=== PATIENT | female | born 1995 | race Caucasian/White ===

== ENCOUNTER 2017-10-21 20:36 | Emergency (ER) | payer MEDICAID, SELFPAY ==
[2017-10-21 20:42] VITALS: BP 109/47; PULSE 74; RESP 16; TEMP 37.1; O2SAT 99
--- NOTE | 2017-10-21 21:10 | ED.GENADUL_ITS ---
Discharge Plan Disposition Patient Disposition: HOME Condition: Improving Discharge Details Chief Complaint: RashLesion Clinical Impression: Abscess and cellulitis of gluteal region Primary Care Provider: Domingo Darby ED Provider: Sun Sanz Home Meds and New Rx's Prescriptions: New sulfamethoxazole-trimethoprim [Bactrim DS] 800-160 mg tablet 1 tab PO Q12H Qty: 14 RF: 0 Continue norgestimate-ethinyl estradiol [Sprintec (28)] 1 EACH tablet 1 tab-cap PO DAILY Qty: 3 RF: 3 ranitidine HCl 150 MG capsule 150 mg PO BID Qty: 60 RF: 1 fluoxetine 20 MG capsule 20 mg PO DAILY Qty: 30 RF: 2 aripiprazole [Abilify] 2 MG tablet 2 mg PO DAILY Qty: 15 RF: 1 Discharge Instructions Instructions: Cellulitis (ED), Abscess Incision and Drainage (GEN) Additional Instructions: Keep wound clean, dry, covered. Please leave dressing in place for the next 48 hours. Take antibiotics as prescribed. Even if symptoms improve please take the entire course. Encourage hydration. Tylenol and/or Motrin as needed for discomfort. Packing is to be removed in 48 hours, try to see primary care in that time line for reevaluation of wound. If you develop fevers/chills, increased pain, spreading of the redness or other new/worsening symptoms please seek care urgently once again. Referrals: Domingo Darby MD [Primary Care Provider] - Discharge Data Discharge Date/Time-TO BE ENTERED AT DEPARTURE: 10/21/17 22:23 Medical Decision Making MDM Narrative Medical decision making narrative: Vira presents today with chief complaint of pain, erythema and drainage to left buttock. She had a wound similar on the right which has since healed well. The area on the left appear to have surrounding cellulitis with erythema, warmth and pain. The central portion is fluctuant with 2 areas that appear to have been draining. No drainage can be expressed at this time. The larger of the openings is 4mm in diameter, the smaller 2mm. This area is very tender for the patient. She appears nontoxic, is afebrile. Reports no fevers at home. States she otherwise feels well. Discussed need to drain the abscess. Discussed risks/benefits as well as expected procedural steps. She needed much reassurance as she is very anxious but is in agreement with this plan. With the surrounding cellulitis, patient will also be placed on antibiotics. UPT negative. Procedure Note: Prior to beginning any procedure, LET was applied over the abscess. Using standard sterile technique, skin was first prepped with chlorhexidine. The area was then anesthetized with 1% lidocaine with epinephrine. 10 cc was used. Patient did express discomfort with injection. Once the area was sufficiently anesthetized, a 11 blade was used to incise the area. Incision connected the 2 open areas. A 1.5 cm opening was made. A large plug was then able to be pulled from the center of the abscess. This appears to be where it had actively been draining from historically. The plug was approximately 2 cm in length by 1 cm in width. This made a large cavity that was able to be visualized in depth. The wound opening and total is approximately 1.5 cm x 5 mm in opening. Irrigated the area, loculations were broken up. Again, I was able to visualize the entirety of the cavity and all of the debris was able to be extracted with gauze, forceps and digital probing. The area was then packed and sterile dressing applied. Patient feels much improved at this time. Patient with placed on Bactrim. There is surrounding erythema. I am concerned that she may have a MRSA infection given her other recent abscess. She was given strict return precautions. Advised follow-up with primary care in 48 hours. Advised at that time the packing may be removed and the wound be reevaluated. She is given strict return precautions. All the questions and concerns were addressed and agree with this plan. I did give the patient and family coupons for the Bactrim. They will call Dr. Darby office tomorrow to schedule appointment [facility] - General Adult General Mode of arrival: ambulatory . Date/Time Provider Initiated Documentation: 10/21/17 20:55 . Limitations to Documentation: no limitations . Information obtained by: patient and family . HPI Narrative: Patient is a 22-year-old female presenting today with chief complaint of area of swelling, redness and pain to the left buttock. She reports she was seen by her primary care 2 weeks ago for similar lesion on the right. At that point, they did not advise any antibiotics. This has subsequently healed quite well. However, she recently developed a new one on the left buttock which has increasing pain, size and erythema. She has noted some purulent discharge from the area. Denies any fevers or chills. Reports she is otherwise feeling well. Is having exquisite discomfort particularly when driving and needing to stay seated on the area for extended periods of time. Related Data Previous Rx's Medication Instructions Recorded sulfamethoxazole-trimethoprim 1 tab PO Q12H #14 tab 10/21/17 [Bactrim DS] Allergies Allergy/AdvReac Type Severity Reaction Status Date / Time No Known Allergies Allergy Unverified 10/23/17 14:05 General Stated Complaint: RashLesion DOMINIK: 3 Review of Systems Constitutional Reports as per HPI, Denies chills, Denies fatigue, Denies fever(s) and Denies headache(s) ENT Denies headache(s) Respiratory Reports system reviewed and no additional complaints, except as docu Gastrointestinal Denies abdominal pain, Denies change in bowel habits, Denies diarrhea and Denies vomiting Genitourinary Denies dysuria, Denies pelvic pain and Denies urinary incontinence Musculoskeletal Reports as per HPI, Reports abnormal gait, Denies numbness and Denies tingling Integumentary/Breasts Reports as per HPI Neurologic Reports abnormal gait, Denies headache(s), Denies numbness, Denies sensory deficit, Denies tingling and Denies paresthesias Endocrine Denies fatigue PFSH Family History Mother Mental disorder Father Difficulty controlling anger Brother Substance abuse Other Mental disorder Asthma Medical History 504 PLAN/IEP Acne Asthma Depression Social History Smoking/Tobacco Use Status: Never Surgical History Tooth extraction Exam Const General: cooperative, healthy appearing, comfortable, no acute distress and well developed Nutritional Appearance: average body habitus and well nourished Orientation: alert Eyes General: appearance normal, both eyes and all related structures Resp Effort & Inspection: normal respiratory effort, able to speak in complete sentences and no respiratory distress Auscultation: clear to auscultation bilaterally Cardio Rate: regular rate Rhythm: regular rhythm Heart Sounds: S1 normal and S2 normal GI Palpation: soft, no guarding, not rigid and nontender Back/Spine/Pelvis Back: no CVA tenderness and back tenderness (Patient has a ) Back/spine/pelvis image: 2 1. area of erythema, centrally there is an area of fluctuance with 2 small openings not currently draining. Skin General skin exam: no ecchymosis, erythema (Wound on the right buttock appears to be healing well. Please see above for left. ), fluctuance (left buttock as above. ) and induration (surroundig tissue is indurated) Neuro General: alert and awake Cognition: normal cognition Speech: speech normal Gait: normal gait Psych Appearance: grossly normal Mental Status: mental status grossly normal Speech and Movement: speech and movement normal Mood: congruent mood Course Vital Signs Temperature 37.1 C 10/21/17 20:42 Pulse 74 10/21/17 20:42 Respiratory Rate 16 10/21/17 20:42 Blood Pressure 109/47 L 10/21/17 20:42 Pulse Oximetry 99 10/21/17 20:42 Temperature 37.1 C 10/21/17 20:42 Pulse 74 10/21/17 20:42 Respiratory Rate 16 10/21/17 20:42 Blood Pressure 109/47 L 10/21/17 20:42 Pulse Oximetry 99 10/21/17 20:42 Procedures Abscess I/D Site: Back (buttock) Side (if applicable): Left Local Anesthetic: Lidocaine 1% and With Epi Amount of anesthesia used (mL): 10 Technique: Incised with #11 Blade Amount of fluid expressed (mL): 8 Irrigation: Yes Packing used?: Plain Complications: Pain (pain with injection of local anesthetic)
[2017-10-21] MEDS: Sulfameth/Trimeth DS TAB 1 TAB PO ×2 (22:18→22:19)
== END 2017-10-21 22:23 | disposition home or self-care (01) ==
LOC: ER 22:34
PROVIDERS: Emergency Provider Physician Assistant; PCP Pediatrics
DX: L03.317 Cellulitis of buttock (principal); L02.31 Cutaneous abscess of buttock
CPT/HCPCS: 10060; 81025; 99283

== ENCOUNTER 2017-12-23 23:59 | Emergency (ER) | payer MEDICAID, SELFPAY ==
[2017-12-24 00:01] VITALS: PULSE 112; RESP 20; TEMP 36.6; O2SAT 100
--- NOTE | 2017-12-24 00:43 | ED.GENADUL_ITS ---
Discharge Plan Disposition Patient Disposition: HOME Condition: Good Discharge Details Chief Complaint: Laceration Clinical Impression: Deliberate self-cutting, Forearm laceration Primary Care Provider: Domingo Darby ED Provider: Jesús Baker [place] Meds and New Rx's Prescriptions: Continue norgestimate-ethinyl estradiol [Sprintec (28)] 1 EACH tablet 1 tab-cap PO DAILY Qty: 3 RF: 3 ranitidine HCl 150 MG capsule 150 mg PO BID Qty: 60 RF: 1 fluoxetine 20 MG capsule 20 mg PO DAILY Qty: 30 RF: 2 aripiprazole [Abilify] 2 MG tablet 2 mg PO DAILY Qty: 15 RF: 1 Discharge Instructions Instructions: Laceration (ED) Additional Instructions: Watch for signs of infection which include increased redness, pain, swelling. Sutures should come out in 10-14 days and you should return here. In the future when you are feeling upset/anxious please call and talk to somebody rather than cutting yourself. You may always return here if you feel unsafe or upset and need help. Referrals: Domingo Darby MD [Primary Care Provider] - Medical Decision Making Patient's wound did need suturing. It was down to subcu but not through subcu. She is neurovascularly intact distally. Please see procedure note. Patient did cut herself but not because of self-harm, more as a release. She has history of same. She is on medications. Not always taking the medications per the boyfriend. Not always making good choices either. However, she is not suicidal or homicidal. She is not depressed. I did offer mental health evaluation tonight and she declined. I asked her what she would do in the future when she gets upset and feels bad and she states would call for help. I have no indication to hold her for mental health. Mother is comfortable with her going. Patient to return here in 10-14 days for suture removal. Watch for signs of infection. Call for help or return here if she has any unsafe feelings or becomes upset and wants to cut in the future. Follow-up with primary care since she does not have mental health counselors. HPI General Mode of arrival: ambulatory . Date/Time Provider Initiated Documentation: 12/24/17 00:03 . Limitations to Documentation: no limitations . Information obtained by: patient and family . HPI Narrative: Patient presents to ED with laceration to left forearm. This was self-inflicted and resulted from her cutting with a kitchen knife. She has a history of cutting as a release mechanism. She denies being suicidal or homicidal. She was upset and felt bad. She has not cut in a long time but tonight was very stressful. She denies any other injury. She has been in counseling previously but does not really have a counselor that she likes does not typically go. She is on medications. She is here with her boyfriend and her mother has arrived as well. Boyfriend in private reports to me that he is worried not because she is suicidal or depressed but because she has been making bad choices and won't go to counseling. Related Data Home Medications Medication Instructions Recorded Confirmed norgestimate-ethinyl estradiol 1 tab-cap PO DAILY #3 pack 11/05/15 12/24/17 [Sprintec (28)] ranitidine HCl 150 mg PO BID #60 tab-cap 09/30/16 12/24/17 aripiprazole [Abilify] 2 mg PO DAILY #15 tab 10/15/17 12/24/17 fluoxetine 20 mg PO DAILY #30 tab-cap 10/15/17 12/24/17 Previous Rx's Medication Instructions Recorded aripiprazole [Abilify] 2 mg PO DAILY #15 tab 10/15/17 fluoxetine 20 mg PO DAILY #30 tab-cap 10/15/17 Allergies Allergy/AdvReac Type Severity Reaction Status Date / Time No Known Allergies Allergy Verified 12/24/17 00:13 General Stated Complaint: Laceration DOMINIK: 4 Review of Systems Constitutional Denies weakness Musculoskeletal Denies numbness and Denies tingling Integumentary/Breasts Reports wounds Neurologic Denies confusion, Denies focal weakness, Denies numbness, Denies tingling, Denies paresthesias and Denies weakness Psychiatric Denies confusion, Denies depression, Denies paranoia, Denies homicidal ideation and Denies suicidal ideation PFSH Family History Mother Mental disorder Father Difficulty controlling anger Brother Substance abuse Other Mental disorder Asthma Medical History 504 PLAN/IEP Acne Asthma Depression Social History Smoking/Tobacco Use Status: Never Surgical History Tooth extraction Exam Const General: cooperative, comfortable and no acute distress Orientation: alert and oriented x3 Skin Trauma: laceration (3 cm laceration to the volar aspect of the left forearm with subcutaneous exposure. Multiple old scars from previous cutting) Neuro General: alert, oriented x3, no focal motor deficits and CN's II-XI intact bilaterally Cognition: normal cognition Speech: speech normal Gait: normal gait Sensory Exam: no sensory deficits noted Extrem Left upper extremity: full ROM, normal capillary refill, elbow/forearm Details: laceration and hand Details: normal capillary refill, neuromotor exam normal and neurosensory exam normal Course Vital Signs Temperature 97.9 F 12/24/17 00:01 Pulse 112 H 12/24/17 00:01 Respiratory Rate 20 12/24/17 00:01 Pulse Oximetry 100 12/24/17 00:01 Temperature 97.9 F 12/24/17 00:01 Pulse 112 H 12/24/17 00:01 Respiratory Rate 20 12/24/17 00:01 Respiratory Effort 12/24/17 00:05 Blood Pressure Position Sitting 12/24/17 00:01 Pulse Oximetry 100 12/24/17 00:01 Oxygen Delivery Method Room Air 12/24/17 00:01 Oxygen Flow Rate 0 12/24/17 00:01 Pain Level 9 12/24/17 00:01 Procedures Laceration Laceration 1: Site: upper extremity Side (If applicable): left Size (cm): 3 Description: linear Depth: simple, single layer Local Anesthetic: Lidocaine 2% and with Epi Pre-repair: wound explored and irrigated extensively Skin layer closed with: nylon Size (cm): 4-0 Number of sutures: 6 Technique: simple, interrupted Subcutaneous layer closed with: vicryl Size: 5-0 Number of sutures: 1 Technique: simple, interrupted
== END 2017-12-24 00:57 | disposition home or self-care (01) ==
LOC: ER 12-24 01:02
PROVIDERS: Emergency Provider Emergency Medicine; PCP Pediatrics
DX: S51.812A Laceration without foreign body of left forearm, initial encounter (principal); W26.0XXA Contact with knife, initial encounter
CPT/HCPCS: 12002; 90471

== ENCOUNTER 2018-01-02 19:39 | Emergency (ER) | payer MEDICAID, SELFPAY ==
[2018-01-02 19:45] VITALS: BP 125/80; PULSE 95; RESP 18; TEMP 36.9; O2SAT 98
--- NOTE | 2018-01-02 20:18 | NUR.NOTE ---
Nursing Note: Patient asking multiple times for a phone to call her mother to tell her not to bring her male friend home tonight. Patient was given a phone on the condition that she calms down and she called mother. This scribe spoke with mother on phone who was driving said friend home. Patient was given phone to talk to her mother and patient was crying and begging mom not to bring her phone home. This scribe took phone away Other nursing staff provided food and drinks and patient was put into safety clothes. Patient allowed labs to be drawn. Mother, rCistina, currently here in ER at this time, wishes patient not to know she is here. Mother states her concern for daughter's escalating behaviors and states patient's prescription for fluoxetine has not been filled for awhile. Mother is tearful and states she has made multiple attempts and that patient is not receptive. She states she does not think that patient will stay with her and it may escalate behaviors if she goes home with her if a safety plan was made. Patient does not routinely stay with mother due to interrelationship issues. Mom does not feel comfortable at this time with patient's behaviors and states she wishes her to get help. notified and MARIA EUGENIA clinician, Melodie notified and is with mom at this time.
[2018-01-02 20:38] LABS: Abs Immature Grans 0.02 k/cumm (0.0-0.09); Absolute Basophil Count 0.02 k/cumm (0.0-0.2); Absolute Eosinophil Count 0.16 k/cumm (0.0-0.7); Absolute Lymphocyte Count 2.95 k/cumm (1.2-3.4); Absolute Monocyte Count 0.76 k/cumm (0.11-0.7); Absolute Neutrophil Count 4.61 k/cumm (1.2-6.7); Basophils % 0.2; Eosinophils % 1.9; HGB 12.5 g/dL (12.0-15.5); Immature Grans % 0.2; Lymphocytes % 34.6; Mean Corp. HGB Concentration 33.8 g/dL (32.0-36.0); Mean Corpuscular Hemoglobin 30.9 pg (27.0-33.0); Mean Corpuscular Volume 91.4 fL (80-95); Mean Platelet Volume 9.1 fL (8.0-11.0); Monocytes % 8.9; Neutrophils % 54.2; Platelet Count 308 x1000/uL (130-400); RBC 4.05 m/cumm (4.00-5.20); RBC Distribution Width 12.2 % (11.7-14.6); White Blood Cell Count 8.52 k/cumm (4.4-10.8)
--- NOTE | 2018-01-02 20:39 | ED.GENADUL_ITS ---
Discharge Plan Disposition Patient Disposition: STILL A PATIENT Condition: Good Discharge Details Chief Complaint: Suicide-Atempt Clinical Impression: Anxiety, Cellulitis, Depression, Suicidal ideation Primary Care Provider: Domingo Darby ED Provider: Domingo Gomez Home Meds and New Rx's Prescriptions: New clindamycin HCl 150 mg capsule 450 mg PO TID 7 Days Qty: 63 RF: 0 No Action norgestimate-ethinyl estradiol [Sprintec (28)] 1 EACH tablet 1 tab-cap PO DAILY Qty: 3 RF: 3 ranitidine HCl 150 MG capsule 150 mg PO BID Qty: 60 RF: 1 fluoxetine 20 MG capsule 20 mg PO DAILY Qty: 30 RF: 2 aripiprazole [Abilify] 2 MG tablet 2 mg PO DAILY Qty: 15 RF: 1 Discharge Instructions Instructions: Cellulitis (ED), Anxiety (ED) Additional Instructions: Please follow-up with your hospice spiritual care coordinator Thursday. Please take the antibiotic as directed. Please continue to re-bandage your wound with bacitracin, please wash it gently every day with soap and water. Please stay at home, follow-up with your counselor soon as possible, if you have any concerns of self-harm, please call 911 immediately. If you notice any worsening of your symptoms, or any new symptoms such as vomiting, diarrhea, fever, chills, shortness of breath , chest pain, numbness, weakness, or fainting , please return immediately to the emergency department for reevaluation. Please follow up with your primary care provider as soon as possible for reassessment and reevaluation. As always, it was a pleasure participating in your medical care today. Referrals: Domingo Darby MD [Primary Care Provider] - Medical Decision Making This is a 22-year-old female with a past medical history of suicide attempt when she was young who presents today for anxiety and self-harm. She recently got in a argument with her mother cammie, it escalated rapidly, she was screaming yelling, and stating that she wanted to hurt her self. She took a knife and perform superficial cuts to her arm on the left. Police were called , further escalating the scenario. She is placed in handcuffs, and brought to the ER for further evaluation. On the way she told police officers that she wanted to eat a gun, however when she arrived here she states that she did not really mean it. On her initial assessment the patient was extremely anxious , yelling and screaming, and very confrontational. Eventually were able to calm the patient down discussed the case with her. We did consult Melodie from mental health services, she came and evaluated the patient, initially Melodie felt that the patient would be stable for discharge home, however during the interim. The patient told the care observer that she I just wanted to , and just wanted to , I want to go home and be my head against the wall and . This is brought up with the patient and she again became extremely confrontational, and immediately attempted to flee the emergency department. Without force she was stopped at the door, and verbally directed back to her room. He was at this time that it was revealed that the patient has not been taking any of her medication or going to counseling as she stated that she had been. Additionally her behavior seems to be escalating over the last few weeks coming to a climax with clear concern for self-harm. The patient's multiple comments of self-harm, worsening status, lack of outpatient follow-up, and an inability to perform an appropriate safety plan for the patient for outpatient discharge and feel that she requires inpatient admission. I will fill out the EEG form as I feel the patient is at risk to herself, and and appropriate for discharge home. We will have the patient evaluated for a clinical cert. the patient's laboratory workup has returned, she is medically cleared at this time. Additionally the patient was given her first dose of clindamycin 450 mg here this evening, we recommend continued dosage on a 3 times daily basis for 7 days total. 12:33 AM The patient has been EEG. We have come up with a care plan and a safety plan for the patient. Will search for placement at this time. Case will be signed out to my colleague pending transfer. HPI General Date/Time Provider Initiated Documentation: 01/02/18 19:47 . HPI Narrative: This is a 22-year-old female with a past medical history of depression and and, who presents today for evaluation of an anxiety attack. She is being brought by state police for evaluation of anxiety attack and self-inflicted wounds. Patient has a history of cutting herself, she recently cut herself roughly 9 days ago, where she was treated, sutures were placed and tetanus was updated. Today the patient got a confrontation with her mother and her boyfriend, she made superficial self-inflicted wounds on her left upper extremity. Police were then called, and responded. While there the confrontation escalated and the patient made the statement that maybe I should just eat a gun. The patient was then brought to the emergency department for further evaluation. Currently the patient states that her remarks about eating the gun were made to be a bitch, and not because I really want to kill myself. She states that the superficial cuts to her arm were meant to express her anger , and not an attempt to truly hurt herself. Currently the patient denies any auditory or visual hallucinations. She denies any homicidal or suicidal ideations at this time. She denies taking any medications. The patient's previously corrected laceration has gotten slightly worse. She has had some mild erythema and mild discharge from that area. She states that it is not been kept clean and she has been picking at the wound. Patient denies any systemic symptoms of fever, chills, or other complaints. Patient has no other complaints at this time. She denies IV or illicit drug use. She does state that she has been taking her fluoxetine at home, however family states that she has not been taking any. No other modifying factors at this time Related Data Home Medications Medication Instructions Recorded Confirmed norgestimate-ethinyl estradiol 1 tab-cap PO DAILY #3 pack 11/05/15 12/24/17 [Sprintec (28)] ranitidine HCl 150 mg PO BID #60 tab-cap 09/30/16 12/24/17 aripiprazole [Abilify] 2 mg PO DAILY #15 tab 10/15/17 12/24/17 fluoxetine 20 mg PO DAILY #30 tab-cap 10/15/17 12/24/17 clindamycin HCl 450 mg PO TID 7 Days #63 cap 01/02/18 Previous Rx's Medication Instructions Recorded aripiprazole [Abilify] 2 mg PO DAILY #15 tab 10/15/17 fluoxetine 20 mg PO DAILY #30 tab-cap 10/15/17 clindamycin HCl 450 mg PO TID 7 Days #63 cap 01/02/18 Allergies Allergy/AdvReac Type Severity Reaction Status Date / Time No Known Allergies Allergy Verified 01/02/18 20:20 General Stated Complaint: Suicide-Atempt DOMINIK: 2 Review of Systems Review of Systems All systems reviewed & are unremarkable except as noted in HPI and below Exam Narrative Exam Narrative: 1.Const: Well-nourished, Well-developed, appearing stated age 2.Eyes: PERRL, no conjunctival injection, and symmetrical lids. 3.ENT: Atraumatic external nose and ears. Moist MM. Neck: Symmetric, trachea midline, No thyromegaly. 4.CVS: +S1/S2, No murmurs or gallops. Peripheral pulses 2+ and equal in all extremities. Brisk capillary refill in all extremities. 5.RESP: Unlabored respiratory effort. Clear to auscultation bilaterally. No wheezes rales or rhonchi 6.GI: Soft, Nontender/Nondistended, No hepatosplenomegaly. No guarding or rebound. 7.MSK: Normocephalic/Atraumatic, Extremities w/o deformity or ttp No cyanosis or clubbing, Normal movement of all extremities. Patient's left upper extremity on her forearm demonstrates small superficial abrasions that are self- inflicted. No active bleeding, no evidence requiring suturing. She has a healing wound that was sutured in the left forearm, fortunately there appears to be some dehiscence in the center. It appears to be healing well with secondary intention. Small amount of purulent material in the center, no evidence of fluctuance. No active discharge at this time. 8.Skin: Warm, Dry. Please see musculoskeletal 9.Neuro: foster parent II-XII grossly intact. Sensation grossly intact, no focal neurologic deficits. 10.Psych: (AAO) x3. Extremely anxious, confrontational, yelling and screaming Course Vital Signs Temperature 36.9 C 01/02/18 19:45 Pulse 95 H 01/02/18 19:45 Respiratory Rate 18 01/02/18 19:45 Blood Pressure 125/80 01/02/18 19:45 Pulse Oximetry 98 01/02/18 19:45 Temperature 36.9 C 01/02/18 19:45 Temperature Source Temporal Artery Scan 01/02/18 19:45 Pulse 95 H 01/02/18 19:45 Respiratory Rate 18 01/02/18 19:45 Respiratory Effort 01/02/18 19:45 Blood Pressure 125/80 01/02/18 19:45 Blood Pressure Position Sitting 01/02/18 19:45 Pulse Oximetry 98 01/02/18 19:45 Oxygen Delivery Method Room Air 01/02/18 19:45 Oxygen Flow Rate 0 01/02/18 19:45
[2018-01-02 20:51] LABS: ALT 20 U/L (12-78); AST 20 U/L (15-37); Albumin 3.5 g/dL (3.4-5.0); Alkaline Phosphatase 77 U/L (46-116); BUN 10 mg/dL (7-18); Bilirubin, Total 0.2 mg/dL (0.2-1.0); Calcium 8.8 mg/dL (8.5-10.1); Chloride 101 mmol/L (98-107); Glucose 104 mg/dL (70-100); Potassium 3.6 mmol/L (3.5-5.1); Sodium 141 mmol/L (136-145); Total Protein 7.6 g/dL (6.4-8.2)
[2018-01-02] MEDS: Clindamycin 150 MG CAP 450 MG PO (20:53)
[2018-01-02 20:59] LABS: TSH 3.12 uIU/mL (0.358-3.74)
[2018-01-02 21:02] LABS: ETHANOL BLOOD < 3.0 mg/dL (<3)
[2018-01-02 21:15] LABS: Acetaminophen 7 ug/mL (10-30); Salicylate < 2.8 mg/dL (2.8-20.0)
[2018-01-02] MEDS: LORazepam 1 MG TAB (21:51)
[2018-01-02 22:13] LABS: *AMPHETAMINES SCREEN URINE Negative (Negative); *BARBITURATES SCREEN URINE Negative (Negative); *BENZODIAZEPINES SCREEN URINE Negative (Negative); Cannabinoids THC POSITIVE (Negative); Cocaine Screen,Urine POSITIVE (Negative); METHADONE URINE SCREEN Negative (Negative); OPIATES URINE SCREEN POSITIVE (Negative)
[2018-01-02 22:14] LABS: Bilirubin Negative (Negative); Blood Trace-intact (Negative); Clarity Clear; Glucose Negative (Negative); Ketones Trace mg/dL (Negative); Leukocyte Esterase Negative (Negative); Nitrite Negative (Negative); Specific Gravity 1.025 (1.005-1.025); pH 6.5 (5-8)
[2018-01-02 22:16] LABS: Tricyclic Antidepressants Negative (Negative)
[2018-01-02 22:20] LABS: RBC 0-2 (0-2); WBC 0-2 HPF (0-5)
[2018-01-02 22:21] LABS: Bacteria Negative HPF (Negative); C & S Indicated? No; Casts 0-2 Hyaline LPF (Negative); Crystals Few Amorphous HPF (Negative); Epithelial Cells Rare HPF (Negative); Mucus Trace (Negative)
[2018-01-02] MEDS: LORazepam 2 MG/ML VIAL (23:04)
--- NOTE | 2018-01-02 23:47 | PDOC.MHCN ---
Date of service: 01/02/18 Time of Service: 23:48 Mental Health Crisis Note Presenting Issue How did you arrive at the ED and why did you come: Pt arrived in ED by VSP. she reports she had an altercation with her mother and her brother and she tried to relieve stress in alfred inappropriate way , by cutting for spite Precipitating Factors When interviewed the patient said she was not suicidal, she had said she wanted to eat a gun, however she said she didn't mean that. Pt is in a pathak and wants the interview . Pt is dressed in paper scrubs, she is anxious, and answers questions agreeably and is occasionally argumentative. She is a 22 yo female who lives alone or sometimes with her mother. She is unemployed. She has previously cut on her arm and has stitches from a recent ED visit Disposition BEHAVIOR: Her behavior is erratic, she is calm at first then argumentative. EYE CONTACT: She makes good eye contact . MOOD: Her mood is anxious. AFFECT: she has a full range of affect. APPETITE: good SLEEP(trouble falling/staying asleep: states she sleeps too much. Plan Her safety is questionable but her mother agreed to take her home and keep an eye on herShe originally agreed to a safety contract and her mother agreed to take her home. However on departure from ED she was heard to say I just want to kill myself, I just want to bang my head against the wall Her behavior and words are clear that she is not safe. She continues to say she will harm herself and then denies. She Signature Clinician's Name/Title: Melodie Lnadin, [facility], [facility] Emergency Services Clinician
[2018-01-02 23:48] VITALS: BP 98/58; PULSE 78; RESP 18; TEMP 36.6; O2SAT 98
--- NOTE | 2018-01-03 00:38 | PDOC.ERCMPRO ---
- If Service Date Differs Date of service: 01/03/18 Time of Service: 00:38 Care Management Progress Note [facility] ER Rm. 5 Meghan presented to the ER with the State Police at approximately 1930. Her behavior upon arrival was initially deemed safe for discharge home with her mother, Cristina, and a safety plan was implemented. Meghan?s behaviors escalated over the course of the evening prior to discharge and the CPSO heard Meghan state, ?I just want to kill myself and bang my head against the wall?. Following, PATRIA Sewell, informed patient that she would be not going home and was going to be involuntary while awaiting a psychiatric facility bed. Meghan?s behaviors have since escalated. Meghan at present is reportedly irritable and anxious, and per nursing has stated that ?the way things are going, I do want to kill myself?. INVOLUNTARY FOR INPATIENT PSYCHIATRIC STABILIZATION. Huddle Participants: PATRIA Sewell; PATRIA Momin; GENET Venegas; GENET Corona ; Marilin Schmitt, Nursing Hedis Analyst. Date and Time: 01/02/2018 12:15am. Safety plan has been established with patient, and care team to adhere to patient goals, identify restrictions based on behavioral status, address nutrition, and determine allowed personal belongings, tools for hygiene, and personal care. Levels of activity including ambulation, supervision, visitors, and privileges based on behaviors and level of engagement by patient to be determined. SAFETY PLAN: 1. Will remain on suicide precautions and in paper clothes. 2. Will remain in room under direct supervision of one-on-one staff at all times provided by JONAH SERNA general road supervisor. 3. May have paper cups, plates, and finger foods. 4. Supervised bathroom privileges only. 5. Comfort bath system only. 6. No personal belongings. 7. May have crayons and paper. 8. May have visitation and/or phone call with mother, Cristina, at the discretion of MARY THURMAN and/or nursing. 9. Follow [facility] Management of the Admitted Behavioral Health Patient policy printed and attached to the safety plan in physical chart. [facility] will be coordinating placement at inpatient facility. Patient is currently involuntary at [facility] and requiring inpatient admission when a bed becomes available. [facility] Frontline Flagstone Layer will continue seeking placement. Please contact the Club Former Land Resource Specialist ([phone]) and [facility] Flagstone Layer ([phone]) for any needed changes in the Safety
[2018-01-03] MEDS: diphenhydrAMINE 25 MG CAP 50 MG PO (00:40)
--- NOTE | 2018-01-03 00:42 | CMPROGNOTE_ITS ---
- If Service Date Differs Date of service: 01/03/18 Time of Service: 00:38 Care Management Progress Note [facility] ER Rm. 5 Meghan presented to the ER with the State Police at approximately 1930. Her behavior upon arrival was initially deemed safe for discharge home with her mother, Cristina, and a safety plan was implemented. Meghan?s behaviors escalated over the course of the evening prior to discharge and the CPSO heard Meghan state, ?I just want to kill myself and bang my head against the wall?. Following , PATRIA Sewell, informed patient that she would be not going home and was going to be involuntary while awaiting a psychiatric facility bed. Meghan?s behaviors have since escalated. Meghan at present is reportedly irritable and anxious, and per nursing has stated that ?the way things are going, I do want to kill myself?. INVOLUNTARY FOR INPATIENT PSYCHIATRIC STABILIZATION. Huddle Participants: PATRIA Sewell; PATRIA Momin; GENTE Venegas; GENET Corona ; Marilin Schmitt, Nursing Rfp Writer. Date and Time: 01/02/2018 12:15am. Safety plan has been established with patient, and care team to adhere to patient goals, identify restrictions based on behavioral status, address nutrition, and determine allowed personal belongings, tools for hygiene, and personal care. Levels of activity including ambulation, supervision, visitors, and privileges based on behaviors and level of engagement by patient to be determined. SAFETY PLAN: 1. Will remain on suicide precautions and in paper clothes. 2. Will remain in room under direct supervision of one-on-one staff at all times provided by JONAH SERNA coke inspector. 3. May have paper cups, plates, and finger foods. 4. Supervised bathroom privileges only. 5. Comfort bath system only. 6. No personal belongings. 7. May have crayons and paper. 8. May have visitation and/or phone call with mother, Cristina, at the discretion of MARY THURMAN and/or nursing. 9. Follow [facility] Management of the Admitted Behavioral Health Patient policy printed and attached to the safety plan in physical chart. [facility] will be coordinating placement at inpatient facility. Patient is currently involuntary at [facility] and requiring inpatient admission when a bed becomes available. [facility] Frontline Legal Recruiter will continue seeking placement. Please contact the Malt Loader Groover Operator ([phone]) and [facility] Legal Recruiter ([phone]) for any needed changes in the Safety
--- NOTE | 2018-01-03 00:43 | PDOC.MHCN ---
Date of service: 01/03/18 Time of Service: 17:06 Mental Health Crisis Note Presenting Issue How did you arrive at the ED and why did you come: Pt had been brought to ED 01/02 by VSP.. due to threatening to kill herserlf and previous self harm [facility] clinician called for an EE. She has been in the ED since last night about 7:30 pm. Precipitating Factors Pt denies suicidal ideation or homicidal ideation. She impulsiviely makes verbal threats but has no definitive plan. After initial EE consult [facility] clinician determined she should be hospitalized for a higher level of care. After a second cert from [facility] psychiatrist she was deemed to be not a serious suicidal risk and her behavior was manageable if her mom took her home. Disposition BEHAVIOR: Her behavior is erratic, she has been sleeping but when agitated she screams and cries to go home EYE CONTACT: She will make eye contact MOOD: Her mood is labile. Plan She denies suicidal ideation. She agrees to go home with a plan to be in the custody of her mom and if she flees her mom will call police. She does not meet EE criteria Dr. Green from [facility] walked her off the EE. She will contact [facility] in the morning to make contact for follow up and be referred for some further treatment. Signature Clinician's Name/Title: Melodie Landin [facility], [facility] Emergency Services Clinician
--- NOTE | 2018-01-03 01:04 | NUR.NOTE ---
Addendum entered by Lupe Ellis 01/03/18 01:48: Marilin has responded to ER and spoken with patient in room. Pt provided with food and drink. Pt states she only wanted fruit, which was provided. Original Note: Nursing Note: pt called out from across the ER to this nurse. I responded to the room ad asked that she not yell in the ER. Pt apologized and asked for medication for sleep. Pt states I want to be sedated. Pt made aware that she had been given medication for sleep and anxiety and this nurse was unable to provide more medication at this time and pt could not be sedated. Pt states You're all a bunch of fat liars and I'm going to flip the f#*k out as well as no one here has done anything to help me. If anything, you all make me want to kill myself even more. Pt states go f*#k yourself. Noted by this nurse to begin to dig at left inner forearm. Pt asked to keep left arm out of blankets. Pt then states You're the reason people f*#herber kill themselves . Pt threatens to run out of facility and go jump in a doty. Pt requests to cotton seed culler- powerhouse mechanic helper Marilin called and states she will come to ED to see patient as soon as she is able. Will continue to monitor.
[2018-01-03] MEDS: Haloperidol 5 MG/ML VIAL IM (01:31)
[2018-01-03] MEDS: Clindamycin 150 MG CAP 450 MG PO ×3 (01:59→17:26)
--- NOTE | 2018-01-03 02:35 | NUR.NOTE ---
Nursing Note: 2100: [facility] employee spoke with patient's mother and mother did not feel comfortable taking patient home, even with safety plan. Patient was under an assumption that she was going home per conversation with MARIA EUGENIA. Patient spoke with mother and mother ended up changing her mind and said she would take patient home with a safety plan in place. Pt had been given 1 mg of Ativan at this time. CPSO at patient bedside consistently. Upon MARIA EUGENIA leaving room after interview, patient was witnessed by CPSO stating that she just wanted to bang her head against a wall repeatedly and that the way that her life has been going that she should just kill herself. Nursing and MD not aware of these comments at that time. CPSO reported to MARIA EUGENIA what was overheard, as [facility] worker was typing up safety plan and patient had been given her clothes to change into as nursing has been told patient was clear to go home. Patient dressed and walking down aguila towards the dictation room where ADIAJOSE MCan and mother were standing with CPSO. MARIA EUGENIA rescinded safety plan upon hearing that patient continued to make statements of self harm intentions. Patient became very agitated, yelling. When this scribe attempted to bring patient back to her room to further discuss in detail what was going on, she ran out to the ambulance bay. This scribe followed and explained to patient that she could not leave at this time until we could establish her safety and that if she did that the police would be called again. (VSP had been sent home after MARIA EUGENIA stated that patient was okay to be taken out of protective custody). Patient followed this scribe back into ER, but became hysterical again with hospital security present, throwing her gingerale at staff. A code velasquez was called and patient again ran to door. This scribe was able to get patient back into ER again where she was taken to her room by her primary nurse in which IM Lorazepam was given. Hospital security present and were able to de-escalate patient with minimal intervention. MARIA EUGENIA, patient's mother and ER staff convened and it was determined that patient was a harm to herself and that she would be involuntarily admitted. Patient's behaviors were bizarre throughout this time. She would calmly explain her situation and the events that brought her to this point, but then would become irrational and unable to comprehend anything told to her, becoming angry and verbally abusive towards staff, then requesting somebody different. Made several comments to numerous people that the CPSO had lied about what she heard, but also admitted that she did state that she said she wanted to harm herself. Making demands as to what time she will be able to leave, when she will have her cert with psychiatrist tomorrow, and on numerous occasions, when she didn't get a precise answer to her questions, she would then make statements such as The second that I can, I will run away from here and I will go jump in a doty, and because of all of this and of you guys I am going to kill myself now. She told this scribe that her life sucks and that she's been dealing with issues with controlling how she feels for a long time. She stated that she felt like she always has had bipolar. When this scribe explained that she needs to try and control her behaviors and outbursts she stated that she has no control over how she reacts. She asked this scribe upon arrival to the ER, that if she got too out of control that if we could help her make sure she didn't hurt herself but that she does this thing.
--- NOTE | 2018-01-03 05:04 | NUR.NOTE ---
Nursing Note: 0130- Patient requesting numerous times for something to help knock her out. Explained multiple times from multiple staff members that she had 3mg total of Lorazepam (1mg po and 2mg IM) and 50mg of Benadryl. Pt. very agitated and demanding for different staff members. Explained that there is limited staffing on nights and that she needed to try and just rest. Pt. became agitated again asking to speak to a mirror fabrication supervisor. driver supervisor called and in to see her. ordered 5mg IM Haldol which patient was grateful for. 0508- Patient has been asleep since Haldol administered with CPSO at bedside.
--- NOTE | 2018-01-03 07:43 | PDOC.ERCMIN ---
- If Service Date Differs Date of service: 01/03/18 Time of Service: 07:43 Care Management Initial Assess REASON FOR HOSPITALIZATION:: Suicide Attempt. PAST MEDICAL HISTORY/PAST SURGICAL HISTORY:: Anxiety, depression, cellulitis, syncope, dysmenorrhea. ADVANCE DIRECTIVES:: None on file at [facility]. Has patient been provided with information about the portal?: No Did the patient sign up for the portal?: No CODE STATUS:: Full Code INSURANCE COVERAGE / FINANCIAL ISSUES:: Medicaid. PRIMARY CARE PHYSICIAN:: Domingo Darby MD. POTENTIAL DISCHARGE NEEDS:: Placement for inpatient psychiatric stabilization. PATIENT/FAMILY EDUCATION NEEDS:: Discharge education, any limitations, and follow up plan of care. ANTICIPATED BARRIERS TO DISCHARGE:: Bed availability. TRANSPORTATION:: Meghan will transport via [employer] at discharge. PLAN:: Meghan will discharge to an inpatient psychiatric facility pending bed availability. will continue to offer support to patient, family, and care team regarding discharge planning and disposition.
--- NOTE | 2018-01-03 07:49 | INITIAL_ITS ---
- If Service Date Differs Date of service: 01/03/18 Time of Service: 07:43 Care Management Initial Assess REASON FOR HOSPITALIZATION:: Suicide Attempt. PAST MEDICAL HISTORY/PAST SURGICAL HISTORY:: Anxiety, depression, cellulitis, syncope, dysmenorrhea. ADVANCE DIRECTIVES:: None on file at [facility]. Has patient been provided with information about the portal?: No Did the patient sign up for the portal?: No CODE STATUS:: Full Code INSURANCE COVERAGE / FINANCIAL ISSUES:: Medicaid. PRIMARY CARE PHYSICIAN:: Domingo Darby MD. POTENTIAL DISCHARGE NEEDS:: Placement for inpatient psychiatric stabilization. PATIENT/FAMILY EDUCATION NEEDS:: Discharge education, any limitations, and follow up plan of care. ANTICIPATED BARRIERS TO DISCHARGE:: Bed availability. TRANSPORTATION:: Meghan will transport via [facility] at discharge. PLAN:: Meghan will discharge to an inpatient psychiatric facility pending bed availability. will continue to offer support to patient, family, and care team regarding discharge planning and disposition.
[2018-01-03] MEDS: LORazepam 1 MG TAB PO (12:30)
--- NOTE | 2018-01-03 13:18 | PDOC.ERCMPRO ---
- If Service Date Differs Date of service: 01/03/18 Time of Service: 13:18 Care Management Progress Note [facility] Rm. 5 Meghan presented to the ER with the [employer] Police at approximately 1930 on 01/02/18. Her behavior upon arrival was initially deemed safe for discharge home with her mother, Cristina, and a safety plan was implemented. Meghan?s behaviors escalated over the course of the evening prior to discharge and the CPSO heard Meghan state, ?I just want to kill myself and bang my head against the wall?. Following, PATRIA Sewell, informed patient that she would be not going home and was going to be involuntary while awaiting a psychiatric facility bed. Meghan has been sleeping on and off this morning and afternoon, reporting that she wants to leave. 2nd cert will happen with the [facility] at 1430. [place] has a bed available for Meghan pending determination from 2nd cert. Trading Analyst to transport at discharge. No changes to the safety plan at this time. INVOLUNTARY FOR INPATIENT PSYCHIATRIC STABILIZATION. Huddle Participants: PATRIA Sewell; PATRIA Momin; Chance, GENET; GENET Corona CM; Mihaela Gamez MD, Con[place]pc[place], [facility] Relay Technician. Date and Time: 01/03/2018 1310 Safety plan has been established with patient, and care team to adhere to patient goals, identify restrictions based on behavioral status, address nutrition, and determine allowed personal belongings, tools for hygiene, and personal care. Levels of activity including ambulation, supervision, visitors, and privileges based on behaviors and level of engagement by patient to be determined. SAFETY PLAN: 1. Will remain on suicide precautions and in paper clothes. 2. Will remain in room under direct supervision of one-on-one staff at all times provided by JONAH SERNA hydrate thickener operator. 3. May have paper cups, plates, and finger foods. 4. Supervised bathroom privileges only. 5. Comfort bath system only. 6. No personal belongings. 7. May have crayons and paper. 8. May have visitation and/or phone call with mother, Cristina, at the discretion of , MARY and/or nursing. 9. Follow [facility] Management of the Admitted Behavioral Health Patient policy printed and attached to the safety plan in physical chart. [facility] will be coordinating placement at inpatient facility. Patient is currently involuntary at [facility] and requiring inpatient admission when a bed becomes available. [facility] Frontline Forest Pathology Professor will continue seeking placement. Please contact the Client Service Associate Normalizer ([phone]) and [facility] Forest Pathology Professor ([phone]) for any needed changes in the Safety
--- NOTE | 2018-01-03 13:23 | CMPROGNOTE_ITS ---
- If Service Date Differs Date of service: 01/03/18 Time of Service: 13:18 Care Management Progress Note [facility] Rm. 5 Meghan presented to the ER with the [employer] Police at approximately 1930 on . Her behavior upon arrival was initially deemed safe for discharge home with her mother, Cristina, and a safety plan was implemented. Meghan?s behaviors escalated over the course of the evening prior to discharge and the CPSO heard Meghan state, ?I just want to kill myself and bang my head against the wall?. Following, PATRIA Sewell, informed patient that she would be not going home and was going to be involuntary while awaiting a psychiatric facility bed. Meghan has been sleeping on and off this morning and afternoon, reporting that she wants to leave. 2nd cert will happen with the [facility] at 1430. [place] has a bed available for Meghan pending determination from 2nd cert. Checkroom Attendant to transport at discharge. No changes to the safety plan at this time. INVOLUNTARY FOR INPATIENT PSYCHIATRIC STABILIZATION. Huddle Participants: PATRIA Sewell; PATRIA Momin; Chance, GENET; GENET Corona CM; Mihaela Gamez MD, Concepc[place], [facility] Telecommunications Field Engineer. Date and Time: 01/03/2018 1310 Safety plan has been established with patient, and care team to adhere to patient goals, identify restrictions based on behavioral status, address nutrition, and determine allowed personal belongings, tools for hygiene, and personal care. Levels of activity including ambulation, supervision, visitors, and privileges based on behaviors and level of engagement by patient to be determined. SAFETY PLAN: 1. Will remain on suicide precautions and in paper clothes. 2. Will remain in room under direct supervision of one-on-one staff at all times provided by JONAH SERNA aerosol line operator. 3. May have paper cups, plates, and finger foods. 4. Supervised bathroom privileges only. 5. Comfort bath system only. 6. No personal belongings. 7. May have crayons and paper. 8. May have visitation and/or phone call with mother, Cristina, at the discretion of , MARY and/or nursing. 9. Follow [facility] Management of the Admitted Behavioral Health Patient policy printed and attached to the safety plan in physical chart. [facility] will be coordinating placement at inpatient facility. Patient is currently involuntary at [facility] and requiring inpatient admission when a bed becomes available. [facility] Frontline Dairy Grazer will continue seeking placement. Please contact the Printing Assistant Rib Trim Separator ([phone]) and [facility] Dairy Grazer ([phone]) for any needed changes in the Safety
[2018-01-03 15:30] VITALS: BP 100/50; PULSE 111; RESP 16; TEMP 36.8; O2SAT 98
--- NOTE | 2018-01-03 17:23 | PDOC.MHCN_ITS ---
Date of service: 01/03/18 Time of Service: 17:06 Mental Health Crisis Note Presenting Issue How did you arrive at the ED and why did you come: Pt had been brought to ED by [facility] due to threatening to kill herserlf and previous self harm [facility] clinician called for an EE. She has been in the ED since last night about 7:30 pm. Precipitating Factors Pt denies suicidal ideation or homicidal ideation. She impulsiviely makes verbal threats but has no definitive plan. After initial EE consult [facility] clinician determined she should be hospitalized for a higher level of care. After a second cert from [facility] psychiatrist she was deemed to be not a serious suicidal risk and her behavior was manageable if her mom took her home. Disposition BEHAVIOR: Her behavior is erratic, she has been sleeping but when agitated she screams and cries to go home EYE CONTACT: She will make eye contact MOOD: Her mood is labile. Plan She denies suicidal ideation. She agrees to go home with a plan to be in the custody of her mom and if she flees her mom will call police. She does not meet EE criteria Dr. Green from [facility] walked her off the EE. She will contact [facility] in the morning to make contact for follow up and be referred for some further treatment. Signature Clinician's Name/Title: Melodie Landin [facility], [facility] Emergency Services Clinician
== END 2018-01-03 17:40 | disposition home or self-care (01) ==
PROVIDERS: Student in an Organized Health Care Education/Training Program; Emergency Provider Physician Assistant; PCP Pediatrics
DX: F41.8 Other specified anxiety disorders (principal); R45.851 Suicidal ideations; L03.114 Cellulitis of left upper limb; T43.226A Underdosing of selective serotonin reuptake inhibitors, initial encounter; Z91.128 Patient's intentional underdosing of medication regimen for other reason; S51.812A Laceration without foreign body of left forearm, initial encounter; X78.1XXA Intentional self-harm by knife, initial encounter
CPT/HCPCS: 36415; 80053; 80307; 81025; 96372; 99284; 80320; 80329; 81003; 81015; 84443; 85025; J1630; J2060

== ENCOUNTER 2019-03-29 19:17 | Emergency (ER) | payer MEDICAID, SELFPAY ==
[2019-03-29 19:19] VITALS: BP 109/74; PULSE 80; TEMP 36.7; O2SAT 100
--- NOTE | 2019-03-29 19:34 | W.ED.GENAD ---
Discharge Plan Disposition Patient Disposition: HOME Condition: Good Discharge Details Chief Complaint: Orthopedic Clinical Impression: Ankle sprain Primary Care Provider: Domingo Darby ED Provider: Sun Sanz Home Meds and New Rx's Prescriptions: Continued aripiprazole [Abilify] 2 mg tablet 2 mg PO DAILY Qty: 10 RF: 0 norgestimate-ethinyl estradiol [Sprintec (28)] 1 EACH tablet 1 tab-cap PO DAILY Qty: 3 RF: 3 ranitidine HCl 150 MG capsule 150 mg PO BID Qty: 60 RF: 1 fluoxetine 20 MG capsule 20 mg PO DAILY Qty: 30 RF: 2 Discharge Instructions Instructions: Ankle Sprain (ED) Additional Instructions: Encourage rest, ice, elevation. Tylenol and/or ibuprofen as needed for discomfort. Please continue with brace while pain persists. Please follow-up with primary care in 2 weeks if not improved. Seek care urgently once again with any new or worsening symptoms. Referrals: Domingo Darby MD [Primary Care Provider] - Medical Decision Making Patient is a pleasant 23-year-old female presenting today with chief complaint of left ankle and foot pain. She reports that she injured this 2 days ago when she tripped going up stairs. Believes that she suffered a hyperextension and external rotation injury. Is endorsing pain over the dorsal medial aspect of the foot and medial aspect of the ankle. She denies any numbness or tingling. No other injury at the time of the incident. Patient denies being , reports recent testing at local clinic. Has been able to ambulate with an antalgic gait. On exam, patient is resting comfortably. She has focal area of swelling over the dorsal medial aspect of the left foot going up the medial aspect of left ankle. There is no pain over the medial malleolus. No pain over the fifth metatarsal. No pain or deformity noted at the Achilles. Good range of motion. Normal vascular exam. Plan for x-rays of the ankle and foot. FINDINGS: Bones/joints: No suspicious osseous lytic or blastic lesion. No discrete or displaced fracture. No joint dislocation. Soft tissues: Mild medial soft tissue edema, subjacent to the medial malleolus. IMPRESSION: No acute fracture or dislocation. FINDINGS: Bones/joints: No suspicious osseous lytic or blastic lesion. No discrete or displaced fracture. No joint dislocation. Soft tissues: No focal abnormality. IMPRESSION: No acute findings. Discussed these findings with the patient. Advised sprain. Encourage rest, ice, elevation. Tylenol and/or ibuprofen as needed for discomfort. She will be fitted with a lace up ankle brace to help with discomfort. Advise follow-up with primary care in 2 weeks if not improved. If she develops new or worsening symptoms she will seek care urgently once again. All of her questions and concerns were addressed and she is in agreement this plan. HPI General Mode of arrival: ambulatory. Date/Time Provider Initiated Documentation: 03/29/19 19:34. Limitations to Documentation: no limitations. Information obtained by: patient, family and RN notes reviewed. History of Present Illness 23 year old F presents to the emergency department with the chief complaint of left foot/ankle pain, described as moderate, with intensity rated at 7. Quality is described as aching, and is localized to the left and lower extremity. Patient reports no radiation. Patient started experiencing this day(s) (2) and it has been constant. Immobilization improves symptom(s), Movement worsens symptoms . Patient notes no other symptoms.. Patient did receive the following treatments prior to arrival, none Related Data Home Medications Medication Instructions Recorded Confirmed norgestimate-ethinyl estradiol 1 tab-cap PO DAILY #3 pack 11/05/15 01/27/18 [Sprintec (28)] ranitidine HCl 150 mg PO BID #60 tab-cap 09/30/16 01/27/18 fluoxetine 20 mg PO DAILY #30 tab-cap 10/15/17 01/27/18 aripiprazole 2 mg tablet 2 mg PO DAILY #10 tab 01/28/18 01/28/18 Previous Rx's Medication Instructions Recorded fluoxetine 20 mg PO DAILY #30 tab-cap 10/15/17 aripiprazole 2 mg tablet 2 mg PO DAILY #10 tab 01/28/18 Allergies Allergy/AdvReac Type Severity Reaction Status Date / Time No Known Allergies Allergy Verified 03/29/19 19:23 General Stated Complaint: Orthopedic DOMINIK: 4 Review of Systems Constitutional Constitutional: Reports as per HPI, Denies chills, Denies fever(s), Denies headache(s) and Denies weakness ENT Ears, Nose, Mouth, and Throat: Denies headache(s) Cardiovascular Cardiovascular: Reports as per HPI Respiratory Respiratory: Reports as per HPI and Denies cough Musculoskeletal Musculoskeletal: Reports as per HPI and Denies tingling Integumentary/Breasts Skin/Breast: Reports as per HPI, Denies rash and Denies wounds Neurologic Neurologic: Reports as per HPI, Denies headache(s), Denies tingling, Denies paresthesias and Denies weakness PFSH Medical History 504 PLAN/IEP Acne Asthma Depression Surgical History Tooth extraction Social History Smoking/Tobacco Use Status: Never Drug use: Daily Do you feel safe in your relationship?: Yes Exam Const General: cooperative, healthy appearing, comfortable, no acute distress, well developed and well groomed Nutritional Appearance: average body habitus and well nourished Orientation: alert and awake Resp Effort & Inspection: normal respiratory effort, able to speak in complete sentences and no respiratory distress Cardio Rate: regular rate Rhythm: regular rhythm Skin General skin exam: no rashes or lesions noted Lesions: no lesions Rashes: no rashes Trauma: no lacerations or abrasions Neuro General: alert and awake Cognition: normal cognition Speech: speech normal Gait: normal gait Motor: muscle tone normal throughout Sensory Exam: no sensory deficits noted Extrem Left lower extremity: full ROM, normal capillary refill, knee Details: normal to inspection; no tenderness (no pain over proximal fibula), lower leg Details: normal to inspection and no edema; no erythema, no tenderness, no localized swelling, no palpable cords, no ecchymosis, no crepitus, no deformity and no unusual warmth, ankle Details: tenderness, swelling, no edema and normal ROM; no crepitus and achilles tendon exam normal (noraml exam) and foot Details: normal capillary refill, tenderness (over area of swelling), toes with normal ROM, no edema, vascular exam Details: dorsalis pedis pulse present, posterior tibial pulse present and normal capillary refill and motor-sensory exam Details: light-touch normal; abnormal to inspection (swelling as drawn below), no unusual warmth, no abrasions, no lacerations, no ecchymosis and no crepitus; abnormal to inspection (swelling over dorsal medial foot and medial ankle) Ankle/foot/toe images: 1. area of swelling and discomfort Psych Appearance: grossly normal and well kempt Mental Status: mental status grossly normal Speech and Movement: speech and movement normal Course Vital Signs Vital signs: Vital Signs Temperature 36.7 C 03/29/19 19:19 Pulse 80 03/29/19 19:19 Blood Pressure 109/74 03/29/19 19:19 Pulse Oximetry 100 03/29/19 19:19 Temperature 36.7 C 03/29/19 19:19 Temperature Source Skin 03/29/19 19:19 Pulse 80 03/29/19 19:19 Respiratory Effort Non-Labored 03/29/19 19:22 Blood Pressure 109/74 03/29/19 19:19 Blood Pressure Position Sitting 03/29/19 19:19 Pulse Oximetry 100 03/29/19 19:19 Oxygen Delivery Method Room Air 03/29/19 19:19 Oxygen Flow Rate 0 03/29/19 19:19 Pain Level 7 03/29/19 19:19
[2019-03-29] MEDS: Acetaminophen 500 MG TAB 1000 MG PO (19:47)
[2019-03-29] MEDS: Ibuprofen 600 MG TAB PO (19:47)
--- NOTE | 2019-03-29 19:52 | DI.RAD_ITS ---
EXAM: XR FOOT LT COMPLETE INDICATION: rotational injury, pain superiomedially. COMPARISON: No exams were available for comparison TECHNIQUE: 2D digital imaging was performed. FINDINGS: No fracture or dislocation is seen. IMPRESSION: Negative left foot.
--- NOTE | 2019-03-29 19:55 | DI.RAD_ITS ---
EXAM: XR ANKLE LT COMPLETE INDICATION: rotational injury, pain over medial malleolus. COMPARISON: No exams were available for comparison TECHNIQUE: 2D digital imaging was performed. FINDINGS: There is soft tissue swelling greatest beneath the medial malleolus. No fracture or ankle mortise wi dening is seen. IMPRESSION: Soft tissue swelling.
--- NOTE | 2019-03-29 20:25 | DI.VRAD_ITS ---
PROCEDURE INFORMATION: Exam: XR Left Foot Complete Exam date and time: 03/29/2019 7:58 PM Age: 23 years old Clinical indication: Foot; Right; Patient HX: Fell up stairs, pain medial TECHNIQUE: Imaging protocol: XR Left foot. Views: 3 or more views. COMPARISON: No relevant prior studies available. FINDINGS: Bones/joints: No suspicious osseous lytic or blastic lesion. No discrete or displaced fracture. No joint dislocation. Soft tissues: No focal abnormality. IMPRESSION: No acute findings. Dictated and Authenticated by: Jackson Emmanuel MD. Ordering:DESHAWN Garsia MD
--- NOTE | 2019-03-29 20:26 | DI.VRAD_ITS ---
PROCEDURE INFORMATION: Exam: XR Left Ankle Exam date and time: 03/29/2019 7:55 PM Age: 23 years old Clinical indication: Ankle; Right; Patient HX: Fell up stairs, pain TECHNIQUE: Imaging protocol: XR Left ankle. Views: 3 or more views. COMPARISON: No relevant prior studies available. FINDINGS: Bones/joints: No suspicious osseous lytic or blastic lesion. No discrete or displaced fracture. No joint dislocation. Soft tissues: Mild medial soft tissue edema, subjacent to the medial malleolus. IMPRESSION: No acute fracture or dislocation. Dictated and Authenticated by: Jackson Emmanuel MD. Ordering:DESAHWN Garsia MD
[2019-03-29 20:41] VITALS: BP 109/74; PULSE 80; TEMP 36.7; O2SAT 100
== END 2019-03-29 20:40 | disposition home or self-care (01) ==
PROVIDERS: Emergency Provider Physician Assistant; PCP Pediatrics
DX: M79.672 Pain in left foot (principal); S93.402A Sprain of unspecified ligament of left ankle, initial encounter; W10.8XXA Fall (on) (from) other stairs and steps, initial encounter; X50.9XXA Other and unspecified overexertion or strenuous movements or postures, initial encounter
CPT/HCPCS: 29515; 99284; 73610; 73630; 99283; L1902

== ENCOUNTER 2019-07-05 08:35 | Outpatient (CLI) | payer MEDICAID, SELFPAY ==
[2019-07-06 17:54] LABS: COVID-19 RT-PCR UVMMC Result Negative (Negative)
== END 2019-07-05 08:55 ==
PROVIDERS: PCP Nurse Practitioner Family; Visit Provider Pediatrics
DX: Z11.59 Encounter for screening for other viral diseases (principal)
CPT/HCPCS: U0003

== ENCOUNTER 2020-06-18 02:05 | Outpatient (CLI) | payer MEDICAID, SELFPAY ==
[2020-06-18 11:55] LABS: Source Nasal/Nares
[2020-06-18 19:27] LABS: COVID-19 PCR Negative (Negative)
== END 2020-06-18 02:06 | disposition home or self-care (01) ==
LOC: LBO 02:06
PROVIDERS: PCP Nurse Practitioner Family; Visit Provider Pediatrics
DX: Z20.822 Contact with and (suspected) exposure to COVID-19 (principal); Z01.818 Encounter for other preprocedural examination
CPT/HCPCS: 87635

== ENCOUNTER 2020-06-19 11:21 | Emergency (ER) | payer MEDICAID, SELFPAY ==
--- NOTE | 2020-06-19 21:06 | NUR.NOTE ---
Patient left without being seen.Nursing Note:
== END 2020-06-19 12:01 ==
LOC: ER 12:00
PROVIDERS: PCP Nurse Practitioner Family
DX: Z53.21 Procedure and treatment not carried out due to patient leaving prior to being seen by health care provider (principal)

== ENCOUNTER 2020-06-19 15:44 | Emergency (ER) | payer MEDICAID, SELFPAY ==
[2020-06-19 15:51] VITALS: BP 112/73; PULSE 61; TEMP 36.8
--- NOTE | 2020-06-19 16:09 | ED.GENADUL_ITS ---
Discharge Plan Disposition Patient Disposition: HOME Condition: Stable Discharge Details Chief Complaint: DrugWithdr/MAT Clinical Impression: Drug addiction Primary Care Provider: Staci Nolasco ED Provider: Zachery Calvin Home Meds and New Rx's Prescriptions: No Action No Known Home Meds RF: 0 Discharge Instructions Instructions: Narcotic Use Disorder (ED) Additional Instructions: if you change your mind and want treatment or help with your addiction call [facility] [employer] at if you feel more ill, have difficulty breathing or persistent vomit return to the emergency department Medical Decision Making 24 yo female who states 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 Patient has no complaints, is caox4, no si/hi. She has no desire at all to stop using at this time and declines any referrals, declines referral to [facility], declines meeting manager of disaster recovery. She has a COWS score of 6 so advised we don't normally start on suboxone for this but could provide 3 day course until she sees JULIO. I offered to provide numbers to call for rehab facilities which she declined. Given she has capacity and is not interested in any help currently will d/c home. I did provide number for [facility] if she changes her mind so she can have assistance and also advised that she can always return to the ED if she wants resources for her addiction Differential Diagnosis Differential Diagnosis: drug addiction, drug abuse HPI General Mode of arrival: ambulatory . Date/Time Provider Initiated Documentation: 06/19/20 15:56 . Limitations to Documentation: no limitations . Information obtained by: patient . History of Present Illness 24 year old F presents to the emergency department with the chief complaint of drug addiction, described as moderate, Patient started experiencing this year(s) (2) and it has been constant. No relieving factors improve symptom(s), No exacerbating factors reported . Patient did receive the following treatments prior to arrival, none Related Data Home Medications Medication Instructions Recorded Confirmed Unknown [No Known Home Meds] 06/19/20 06/19/20 Allergies Allergy/AdvReac Type Severity Reaction Status Date / Time No Known Allergies Allergy Verified 06/19/20 16:10 General Stated Complaint: DrugWithdr/MAT DOMINIK: 3 Review of Systems All systems reviewed & are unremarkable except as noted in HPI and below Constitutional Constitutional: Denies chills, Denies fever(s) and Denies weakness Cardiovascular Cardiovascular: Denies chest pain and Denies dyspnea Respiratory Respiratory: Denies cough and Denies dyspnea Gastrointestinal Gastrointestinal: Denies abdominal pain, Denies nausea and Denies vomiting Musculoskeletal Musculoskeletal: Denies joint swelling Neurologic Neurologic: Denies weakness [facility] Medical History (Updated 06/19/20 @ 16:19 by Zachery Calvin MD) 504 PLAN/IEP Acne Asthma Depression Surgical History Tooth extraction Family History Mother Mental disorder anxiety/depression Father Difficulty controlling anger Brother Substance abuse Other Mental disorder MGM- anxiety/depression Asthma MGF, MU. MGM Social History Smoking/Tobacco Use Status: Current every day Tobacco Type: cigarettes and e- cigarettes Tobacco: How many years used: 3 Smoking risk assessment performed?: Yes Alcohol Intake: never Drug use: Daily Substance use type: crack/cocaine, opiates and IV drugs Do you feel safe at home: Yes Do you feel safe in your relationship?: Yes Exam Const General: no acute distress Orientation: alert HENMT Head: normal to inspection Ears: external ears normal General nose exam: external nose normal Mouth: moist mucous membranes Eyes General: appearance normal, both eyes and all related structures Neck Neck: normal visual inspection Resp Effort & Inspection: normal respiratory effort and able to speak in complete sentences Cardio Rate: regular rate Skin General skin exam: elasticity normal Neuro General: patient alert and patient oriented x3 Extrem General: normal to inspection Psych Mental Status: mental status grossly normal Course Vital Signs Vital signs: Vital Signs Temperature 36.8 C 06/19/20 15:51 Pulse 61 06/19/20 15:51 Blood Pressure 112/73 06/19/20 15:51 Temperature 36.8 C 06/19/20 15:51 Temperature Source Temporal Artery Scan 06/19/20 15:51 Pulse 61 06/19/20 15:51 Respiratory Effort Non-Labored 06/19/20 16:00 Blood Pressure 112/73 06/19/20 15:51 Blood Pressure Position Sitting 06/19/20 15:51 Oxygen Delivery Method Room Air 06/19/20 15:51 Oxygen Flow Rate 0 06/19/20 15:51 Pain Level 0 06/19/20 15:51
== END 2020-06-19 17:17 | disposition home or self-care (01) ==
PROVIDERS: Emergency Provider Emergency Medicine; PCP Nurse Practitioner Family
DX: F11.20 Opioid dependence, uncomplicated (principal); F14.20 Cocaine dependence, uncomplicated
CPT/HCPCS: 80307; 90471; 99283; 81003

== ENCOUNTER 2020-10-10 19:59 | Emergency (ER) | payer MEDICAID, SELFPAY ==
[2020-10-10 20:00] VITALS: BP 100/62; PULSE 79; RESP 15; TEMP 37.1; O2SAT 97
[2020-10-10 20:59] LABS: Abs Immature Grans 0.02 10^3/uL (0.0-0.06); Absolute Basophil Count 0.03 10^3/uL (0.0-0.2); Absolute Eosinophil Count 0.23 10^3/uL (0.0-0.7); Absolute Lymphocyte Count 2.69 10^3/uL (1.2-3.4); Absolute Monocyte Count 0.32 10^3/uL (0.1-0.8); Absolute Neutrophil Count 5.86 10^3/uL (1.2-6.7); Basophils % 0.3; Eosinophils % 2.5; HCT 38.5 % (36.0-46.0); Immature Grans % 0.2; Lymphocytes % 29.4; MCHC 33.8 % (32.0-36.0); MCV 88.7 fL (80-95); MPV 9.6 fL (8.0-11.0); Monocytes % 3.5; Neutrophils % 64.1; Nucleated RBC 0 %; Platelet Count 224 10^3/uL (130-400); RBC 4.34 10^6/uL (3.93-5.22); RDW 11.9 % (11.7-14.6); RDW-SD 38.7 fL; WBC 9.15 10^3/uL (4.4-10.8)
[2020-10-10 21:36] LABS: ALT 14 U/L (14-59); AST 14 U/L (15-37); Albumin 3.8 g/dL (3.4-5.0); Alkaline Phosphatase 79 U/L (46-116); Anion Gap 6.3 mmol/L (3-11); BUN 11 mg/dL (7-18); Bilirubin, Total 0.2 mg/dL (0.2-1.0); CO2 29.7 mmol/L (21.0-32.0); CREATININE 0.7 mg/dL (0.55-1.02); Chloride 106 mmol/L (98-107); ETHANOL BLOOD < 3.0 mg/dL (<3); Glucose 100 mg/dL (74-106); Potassium 4.1 mmol/L (3.5-5.1); Sodium 142 mmol/L (136-145); TSH (W/Ref FT4) 0.72 uIU/mL (0.36-3.74); Total Protein 7.6 g/dL (6.4-8.2)
[2020-10-10 21:43] LABS: Bilirubin Negative (Negative); Blood Negative (Negative); Clarity Sl Cloudy (Clear); Glucose Negative (Negative); Ketones Negative (Negative); Leukocyte Esterase Negative (Negative); Nitrite Negative (Negative); Specific Gravity >= 1.030 (1.005-1.025); Urobilinogen 0.2 EU/dL (Up TO 0.2)
--- NOTE | 2020-10-10 21:47 | W.ED.GENAD ---
Discharge Plan Disposition Patient Disposition: [facility] INPATIENT Condition: Stable Discharge Details Clinical Impression: Depression, Cellulitis of buttock, Polysubstance abuse Primary Care Provider: Staci Nolasco ED Provider: Arturo Couch Home Meds and New Rx's Prescriptions: No Action No Known Home Meds RF: 0 Medical Decision Making This is a 25-year-old female seeking voluntary placement for polysubstance abuse, anxiety, depression. Denies any suicidal or homicidal ideations. No clear threat to self or others at this time, she is cooperative. She does appear to have a small area of cellulitis to her left buttocks, history of MRSA, will initiate Bactrim DS therapy here. We will request a mental health consultation, field hockey and lacrosse coach consultation, and I will obtain routine laboratory values for medical screening purposes. At this time as she is cooperative, seeking voluntary placement, no threat to herself or others, and her mother is here in the ER with her, I do not feel a CPSO is needed; however, if she is eventually admitted to the floor, her mother will not be able to be with her and then a CPSO would likely be beneficial. Laboratory values do not reveal any obvious emergent process. Tox screen positive for opiates and cocaine which is what the patient admits to using. Patient is requesting to go outside and smoke a cigarette, we explained our policy that she cannot do this, will give her Nicotrol instead. Both mental health consultation and field hockey and lacrosse coach consultation completed. At this time seeking voluntary inpatient placement for depression and polysubstance abuse. After speaking with mental health, placement is not going to happen this evening and likely not tomorrow morning either, given this will discuss admission with our hospitalist team Patient tolerating p.o. intake without difficulty here in the ER Case discussed with Dr. Babcock who is agreeable to admission Medical Records Medical records reviewed: Yes I reviewed the patient's medical records. Lab Data Lab results reviewed: Yes I reviewed the patient's lab results. Labs: Laboratory Tests Range/Units 10/10/20 10/10/20 10/10/20 20:10 20:10 20:55 WBC (4.4-10.8) 10^3/uL RBC (3.93-5.22) 10^6/uL Hgb (11.2-15.7) g/dL Hct (36.0-46.0) % MCV (80-95) fL MCH (27.0-33.0) pg MCHC (32.0-36.0) % RDW (11.7-14.6) % Plt Count (130-400) 10^3/uL MPV (8.0-11.0) fL Immature Gran % Neutrophils % Lymphocytes % Monocytes % Eosinophils % Basophils % Nucleated RBC % % Absolute Neutrophils (1.2-6.7) 10^3/uL Absolute Lymphocytes (1.2-3.4) 10^3/uL Absolute Monocytes (0.1-0.8) 10^3/uL Absolute Eosinophils (0.0-0.7) 10^3/uL Absolute Basophils (0.0-0.2) 10^3/uL Sodium (136-145) mmol/L 142 Potassium (3.5-5.1) mmol/L 4.1 Chloride (98-107) mmol/L 106 Carbon Dioxide (21.0-32.0) mmol/L 29.7 Anion Gap (3-11) mmol/L 6.3 BUN (7-18) mg/dL 11 Creatinine (0.55-1.02) mg/dL 0.7 Estimated GFR/1.73 m2 (mL/min/1.73m2) >= 60.00 Glucose (74-106) mg/dL 100 Calcium (8.5-10.1) mg/dL 9.0 Total Bilirubin (0.2-1.0) mg/dL 0.2 AST (15-37) U/L 14 L ALT (14-59) U/L 14 Alkaline Phosphatase (46-116) U/L 79 Total Protein (6.4-8.2) g/dL 7.6 Albumin (3.4-5.0) g/dL 3.8 TSH (0.36-3.74) uIU/mL 0.72 Urine Color (Yellow) Yellow Urine Clarity (Clear) Sl Cloudy Urine pH (5-8) 6.0 Ur Specific [place] (1.005-1.025) >= 1.030 H Urine Protein (Negative) mg/dL Trace H Urine Ketones (Negative) mg/dL Negative Urine Blood (Negative) Negative Urine Nitrite (Negative) Negative Urine Bilirubin (Negative) Negative Urine Urobilinogen (Up TO 0.2) EU/dL 0.2 Ur Leukocyte Esterase (Negative) Negative Urine RBC (0-2) HPF 0-2 Urine WBC (0-5) HPF 0-2 Ur Epithelial Cells (Negative) HPF Moderate Urine Crystals (Negative) HPF Negative Urine Bacteria (Negative) HPF Moderate Urine Casts (Negative) LPF Negative Urine Mucus (Negative) Negative Ur Culture Indicated? No/Sq. Contamination Urine Glucose (Negative) mg/dL Negative Urine Opiates Screen (Negative) Positive A Urine Methadone Screen (Negative) Negative Ur Barbiturates Screen (Negative) Negative Ur Tricyclics Screen (Negative) Negative Ur Amphetamines Screen (Negative) Negative U Benzodiazepines Scrn (Negative) Negative Urine Cocaine Screen (Negative) Positive A Ur THC Screen (Negative) Negative Ethyl Alcohol (<3) mg/dL < 3.0 Range/Units 10/10/20 20:55 WBC (4.4-10.8) 10^3/uL 9.15 RBC (3.93-5.22) 10^6/uL 4.34 Hgb (11.2-15.7) g/dL 13.0 Hct (36.0-46.0) % 38.5 MCV (80-95) fL 88.7 MCH (27.0-33.0) pg 30.0 MCHC (32.0-36.0) % 33.8 RDW (11.7-14.6) % 11.9 Plt Count (130-400) 10^3/uL 224 MPV (8.0-11.0) fL 9.6 Immature Gran % 0.2 Neutrophils % 64.1 Lymphocytes % 29.4 Monocytes % 3.5 Eosinophils % 2.5 Basophils % 0.3 Nucleated RBC % % 0 Absolute Neutrophils (1.2-6.7) 10^3/uL 5.86 Absolute Lymphocytes (1.2-3.4) 10^3/uL 2.69 Absolute Monocytes (0.1-0.8) 10^3/uL 0.32 Absolute Eosinophils (0.0-0.7) 10^3/uL 0.23 Absolute Basophils (0.0-0.2) 10^3/uL 0.03 Sodium (136-145) mmol/L Potassium (3.5-5.1) mmol/L Chloride (98-107) mmol/L Carbon Dioxide (21.0-32.0) mmol/L Anion Gap (3-11) mmol/L BUN (7-18) mg/dL Creatinine (0.55-1.02) mg/dL Estimated GFR/1.73 m2 (mL/min/1.73m2) Glucose (74-106) mg/dL Calcium (8.5-10.1) mg/dL Total Bilirubin (0.2-1.0) mg/dL AST (15-37) U/L ALT (14-59) U/L Alkaline Phosphatase (46-116) U/L Total Protein (6.4-8.2) g/dL Albumin (3.4-5.0) g/dL TSH (0.36-3.74) uIU/mL Urine Color (Yellow) Urine Clarity (Clear) Urine pH (5-8) Ur Specific [place] (1.005-1.025) Urine Protein (Negative) mg/dL Urine Ketones (Negative) mg/dL Urine Blood (Negative) Urine Nitrite (Negative) Urine Bilirubin (Negative) Urine Urobilinogen (Up TO 0.2) EU/dL Ur Leukocyte Esterase (Negative) Urine RBC (0-2) HPF Urine WBC (0-5) HPF Ur Epithelial Cells (Negative) HPF Urine Crystals (Negative) HPF Urine Bacteria (Negative) HPF Urine Casts (Negative) LPF Urine Mucus (Negative) Ur Culture Indicated? Urine Glucose (Negative) mg/dL Urine Opiates Screen (Negative) Urine Methadone Screen (Negative) Ur Barbiturates Screen (Negative) Ur Tricyclics Screen (Negative) Ur Amphetamines Screen (Negative) U Benzodiazepines Scrn (Negative) Urine Cocaine Screen (Negative) Ur THC Screen (Negative) Ethyl Alcohol (<3) mg/dL HPI General Mode of arrival: ambulatory. Date/Time Provider Initiated Documentation: 10/10/20 20:29. Limitations to Documentation: no limitations. Information obtained by: patient and family. HPI Narrative: This is a 25-year-old female presenting to the ER with her mother for evaluation of anxiety, depression, polysubstance abuse. She admits to smoking crack cocaine and IV fentanyl use on a daily basis, last used earlier today. She also smokes cigarettes but denies alcohol use or marijuana use. She has a history of self harming behavior, overdose, but she denies any suicidal or homicidal ideations at this time. She denies recent illness or trauma. She is concerned that she may have a small skin infection to her left buttocks, reports history of MRSA. She denies fever, chest pain, abdominal pain, nausea, vomiting, skin rash elsewhere on her body, joint pain. Patient [facility] and [facility] recommended going to the nearest ER for evaluation. Patient at this time would like to seek voluntary inpatient therapy for polysubstance abuse and depression. Related Data Home Medications Medication Instructions Recorded Confirmed Unknown [No Known Home Meds] 06/19/20 10/10/20 Allergies Allergy/AdvReac Type Severity Reaction Status Date / Time No Known Allergies Allergy Verified 10/10/20 20:23 General Stated Complaint: PsychEval DOMINIK: 2 Review of Systems Constitutional Constitutional: Denies fever(s) and Denies weakness Cardiovascular Cardiovascular: Denies chest pain and Denies dyspnea Respiratory Respiratory: Denies cough and Denies dyspnea Gastrointestinal Gastrointestinal: Denies abdominal pain, Denies nausea and Denies vomiting Genitourinary Genitourinary: Denies dysuria Musculoskeletal Musculoskeletal: Denies back pain Integumentary/Breasts Skin/Breast: Reports erythema Neurologic Neurologic: Denies weakness Psychiatric Psychiatric: Reports anxiety, Reports depression, Denies homicidal ideation and Denies suicidal ideation [facility] Medical History (Updated 10/10/20 @ 22:37 by RADHA Grant) 504 PLAN/IEP Acne Asthma Depression Surgical History Tooth extraction Family History Mother Mental disorder anxiety/depression Father Difficulty controlling anger Brother Substance abuse Other Mental disorder MGM- anxiety/depression Asthma MGF, MU. MGM Social History Smoking/Tobacco Use Status: Current every day Tobacco Type: cigarettes and e-cigarettes Tobacco: How many years used: 3 Smoking risk assessment performed?: Yes Alcohol Intake: never Drug use: Daily Substance use type: crack/cocaine, opiates and IV drugs Do you feel safe at home: Yes Do you feel safe in your relationship?: Yes Exam Const General: cooperative, comfortable, no acute distress and anxious Orientation: alert, awake and oriented x3 HENMT Head: normal to inspection, normocephalic and atraumatic Ears: external ears normal, TM's normal bilaterally and EAC's normal Face and sinus: normal facial exam Mouth: moist mucous membranes Throat: posterior oropharynx normal Eyes General: appearance normal, both eyes and all related structures Conjunctivae: conjunctivae normal Neck Neck: normal visual inspection, full ROM, no meningeal signs, trachea midline, supple and nontender Resp Effort & Inspection: normal respiratory effort and able to speak in complete sentences Auscultation: clear to auscultation bilaterally Cardio Rate: regular rate Rhythm: regular rhythm GI Palpation: soft and nontender Back/Spine/Pelvis Back: No back tenderness Skin Full body images: 1. Mild warmth, erythema, central scabbing. There is no induration, fluctuance, pointing abscess, drainage. No lymphangitic streaking. Neuro General: patient alert, patient awake, moves all extremities and no focal motor deficits Sensory Exam: no sensory deficits noted Psych Appearance: grossly normal Mental Status: mental status grossly normal Course Vital Signs Vital signs: Vital Signs Temperature 37.1 C 10/10/20 20:00 Pulse 79 10/10/20 20:00 Respiratory Rate 15 10/10/20 20:00 Blood Pressure 100/62 10/10/20 20:00 Pulse Oximetry 97 10/10/20 20:00 Temperature 37.1 C 10/10/20 20:00 Temperature Source Oral 10/10/20 20:00 Pulse 79 10/10/20 20:00 Respiratory Rate 15 10/10/20 20:00 Respiratory Effort Non-Labored 10/10/20 20:24 Blood Pressure 100/62 10/10/20 20:00 Blood Pressure Position Sitting 10/10/20 20:00 Pulse Oximetry 97 10/10/20 20:00 Oxygen Delivery Method Room Air 10/10/20 20:00 Oxygen Flow Rate 0 10/10/20 20:00 Pain Level 0 10/10/20 20:00 Lab/Test Results Lab/Test Results: Laboratory Tests Range/Units 10/10/20 10/10/20 10/10/20 20:10 20:55 20:55 WBC (4.4-10.8) 10^3/uL 9.15 RBC (3.93-5.22) 10^6/uL 4.34 Hgb (11.2-15.7) g/dL 13.0 Hct (36.0-46.0) % 38.5 MCV (80-95) fL 88.7 MCH (27.0-33.0) pg 30.0 MCHC (32.0-36.0) % 33.8 RDW (11.7-14.6) % 11.9 Plt Count (130-400) 10^3/uL 224 MPV (8.0-11.0) fL 9.6 Immature Gran % 0.2 Neutrophils % 64.1 Lymphocytes % 29.4 Monocytes % 3.5 Eosinophils % 2.5 Basophils % 0.3 Nucleated RBC % % 0 Absolute Neutrophils (1.2-6.7) 10^3/uL 5.86 Absolute Lymphocytes (1.2-3.4) 10^3/uL 2.69 Absolute Monocytes (0.1-0.8) 10^3/uL 0.32 Absolute Eosinophils (0.0-0.7) 10^3/uL 0.23 Absolute Basophils (0.0-0.2) 10^3/uL 0.03 Sodium (136-145) mmol/L 142 Potassium (3.5-5.1) mmol/L 4.1 Chloride (98-107) mmol/L 106 Carbon Dioxide (21.0-32.0) mmol/L 29.7 Anion Gap (3-11) mmol/L 6.3 BUN (7-18) mg/dL 11 Creatinine (0.55-1.02) mg/dL 0.7 Estimated GFR/1.73 m2 (mL/min/1.73m2) >= 60.00 Glucose (74-106) mg/dL 100 Calcium (8.5-10.1) mg/dL 9.0 Total Bilirubin (0.2-1.0) mg/dL 0.2 AST (15-37) U/L 14 L ALT (14-59) U/L 14 Alkaline Phosphatase (46-116) U/L 79 Total Protein (6.4-8.2) g/dL 7.6 Albumin (3.4-5.0) g/dL 3.8 TSH (0.36-3.74) uIU/mL 0.72 Urine Color (Yellow) Yellow Urine Clarity (Clear) Sl Cloudy Urine pH (5-8) 6.0 Ur Specific [place] (1.005-1.025) >= 1.030 H Urine Protein (Negative) mg/dL Trace H Urine Ketones (Negative) mg/dL Negative Urine Blood (Negative) Negative Urine Nitrite (Negative) Negative Urine Bilirubin (Negative) Negative Urine Urobilinogen (Up TO 0.2) EU/dL 0.2 Ur Leukocyte Esterase (Negative) Negative Urine Glucose (Negative) mg/dL Negative Ethyl Alcohol (<3) mg/dL < 3.0
[2020-10-10 21:53] LABS: Bacteria Moderate HPF (Negative); C & S Indicated? No/Sq. Contamination; Casts Negative LPF (Negative); Crystals Negative HPF (Negative); Epithelial Cells Moderate HPF (Negative); Mucus Negative (Negative); RBC 0-2 HPF (0-2); WBC 0-2 HPF (0-5)
[2020-10-10 21:55] LABS: *AMPHETAMINES SCREEN URINE Negative (Negative); *BARBITURATES SCREEN URINE Negative (Negative); *BENZODIAZEPINES SCREEN URINE Negative (Negative); Cannabinoids THC Negative (Negative); Cocaine Screen,Urine Positive (Negative); METHADONE URINE SCREEN Negative (Negative); OPIATES URINE SCREEN Positive (Negative); Tricyclic Antidepressants Negative (Negative)
[2020-10-10] MEDS: Sulfameth/Trimeth DS TAB 1 TAB PO (22:21)
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
--- NOTE | 2020-10-10 23:03 | HPE_ITS ---
Date of service: 10/10/20 Time of Service: 23:03 Assessment and Plan Assessment and plan (1) Drug addiction: Status: Acute Assessment and plan: AWaiting bed [facility]. She seems stable at the present time. She requests a hepatitis C test. I will order that. (2) Amenorrhea: Status: Acute Assessment and plan: We will check thyroid studies and test. (3) Cellulitis of buttock: Status: Acute Assessment and plan: We will start her on Bactrim DS. History of Present Illness History of Present Illness Chief Complaint: seeking drug addiction treatment Narrative: This 25-year-old female is here because she is seeking drug addiction treatment. She has been using cocaine and fentanyl frequently, generally daily. She suffers from history of anxiety and depression. She is not currently taking any medicines. She does not have a primary care provider. She says she was in treatment about a year ago at [facility] and another treatment program called [facility]. She says the longest time she quit using drugs was about 7 days after the treatments. She wants to go to [facility]. She called there and there are no beds available now but hopefully there will be a bed available soon. She is not suicidal. She lives with her mother. She is not employed at the present time. She is tobacco frequently. She drinks alcohol occasionally. She has received a coronavirus vaccine. Review of Systems Constitutional Constitutional: Reports body ache(s), Reports chills, Denies fever(s), Denies lethargy and Denies poor appetite Cardiovascular Cardiovascular: Denies chest pain, Denies rapid heart rate, Denies palpitations and Denies dyspnea Respiratory Respiratory: Reports chest congestion, Reports cough and Denies dyspnea Gastrointestinal Gastrointestinal: Denies abdominal pain, Denies nausea and Denies vomiting Genitourinary Comments: History of frequent urinary tract infections. no menses x 1 year. Musculoskeletal Musculoskeletal: Denies myalgias Neurologic Neurologic: Denies localized weakness Endocrine Endocrine: Denies palpitations [facility] Medical History (Updated 10/10/20 @ 23:17 by William Babcock MD) 504 PLAN/IEP Acne Asthma Depression Surgical History Tooth extraction Family History Mother Mental disorder anxiety/depression Father Difficulty controlling anger Brother Substance abuse Other Mental disorder MGM- anxiety/depression Asthma MGF, MU. MGM Social History Smoking/Tobacco Use Status: Current every day Tobacco Type: cigarettes and e- cigarettes Tobacco: How many years used: 3 Smoking risk assessment performed?: Yes Alcohol Intake: never Drug use: Daily Substance use type: crack/cocaine, opiates and IV drugs Do you feel safe at home: Yes Do you feel safe in your relationship?: Yes Meds Allergies and Home Medications Allergies Allergy/AdvReac Type Severity Reaction Status Date / Time No Known Allergies Allergy Verified 10/10/20 20:23 Home Medications Medication Instructions Recorded Confirmed Type Unknown [No Known Home Meds] 06/19/20 10/10/20 History Exam Const General: cooperative, comfortable and no acute distress Nutritional Appearance: underweight Orientation: alert, awake and oriented x3 Eyes General: appearance normal, both eyes and all related structures Neck Neck: normal visual inspection and no lymphadenopathy Thyroid: thyroid normal Resp Effort & Inspection: normal respiratory effort and able to speak in complete sentences Auscultation: no rales, no rhonchi and no wheezes Cardio Jugular venous pressure: no JVD Rate: regular rate Rhythm: regular rhythm Heart Sounds: S1 normal, S2 normal, click, gallop and murmur GI Inspection: normal to inspection Palpation: no hepatosplenomegaly and nontender Neuro General: patient oriented x3 Cognition: normal cognition Speech: speech normal Results Labs Result diagrams: 10/10/20 20:55 10/10/20 20:55 Labs: Laboratory Results - last 24 hr 10/10/20 10/10/20 10/10/20 20:10 20:10 20:55 WBC RBC Hgb Hct MCV MCH MCHC RDW Plt Count MPV Immature Gran % Neutrophils % Lymphocytes % Monocytes % Eosinophils % Basophils % Nucleated RBC % Absolute Neutrophils Absolute Lymphocytes Absolute Monocytes Absolute Eosinophils Absolute Basophils Sodium 142 Potassium 4.1 Chloride 106 Carbon Dioxide 29.7 Anion Gap 6.3 BUN 11 Creatinine 0.7 Estimated GFR/1.73 m2 >= 60.00 Glucose 100 Calcium 9.0 Total Bilirubin 0.2 AST 14 L ALT 14 Alkaline Phosphatase 79 Total Protein 7.6 Albumin 3.8 TSH 0.72 Urine Color Yellow Urine Clarity Sl Cloudy Urine pH 6.0 Ur Specific [place] >= 1.030 H Urine Protein Trace H Urine Ketones Negative Urine Blood Negative Urine Nitrite Negative Urine Bilirubin Negative Urine Urobilinogen 0.2 Ur Leukocyte Esterase Negative Urine RBC 0-2 Urine WBC 0-2 Ur Epithelial Cells Moderate Urine Crystals Negative Urine Bacteria Moderate Urine Casts Negative Urine Mucus Negative Ur Culture Indicated? No/Sq. Contamination Urine Glucose Negative Urine Opiates Screen Positive A Urine Methadone Screen Negative Ur Barbiturates Screen Negative Ur Tricyclics Screen Negative Ur Amphetamines Screen Negative U Benzodiazepines Scrn Negative Urine Cocaine Screen Positive A Ur THC Screen Negative Ethyl Alcohol < 3.0 10/10/20 20:55 WBC 9.15 RBC 4.34 Hgb 13.0 Hct 38.5 MCV 88.7 MCH 30.0 MCHC 33.8 RDW 11.9 Plt Count 224 MPV 9.6 Immature Gran % 0.2 Neutrophils % 64.1 Lymphocytes % 29.4 Monocytes % 3.5 Eosinophils % 2.5 Basophils % 0.3 Nucleated RBC % 0 Absolute Neutrophils 5.86 Absolute Lymphocytes 2.69 Absolute Monocytes 0.32 Absolute Eosinophils 0.23 Absolute Basophils 0.03 Sodium Potassium Chloride Carbon Dioxide Anion Gap BUN Creatinine Estimated GFR/1.73 m2 Glucose Calcium Total Bilirubin AST ALT Alkaline Phosphatase Total Protein Albumin TSH Urine Color Urine Clarity Urine pH Ur Specific [place] Urine Protein Urine Ketones Urine Blood Urine Nitrite Urine Bilirubin Urine Urobilinogen Ur Leukocyte Esterase Urine RBC Urine WBC Ur Epithelial Cells Urine Crystals Urine Bacteria Urine Casts Urine Mucus Ur Culture Indicated? Urine Glucose Urine Opiates Screen Urine Methadone Screen Ur Barbiturates Screen Ur Tricyclics Screen Ur Amphetamines Screen U Benzodiazepines Scrn Urine Cocaine Screen Ur THC Screen Ethyl Alcohol Last Vital Signs Temp 37.1 C 10/10/20 20:00 Pulse 79 10/10/20 20:00 Resp 15 10/10/20 20:00 BP 100/62 10/10/20 20:00 Pulse Ox 97 10/10/20 20:00
[2020-10-12 11:35] LABS: Hepatitis C Ab w Rflx HCV PCR Reactive (Negative)
[2020-10-15 15:30] LABS: HCV RNA Qualitative Undetected (Undetected)
== END 2020-10-11 00:31 | disposition short-term general hospital (02) ==
PROVIDERS: Family Medicine; Emergency Provider Physician Assistant; PCP Nurse Practitioner Family
DX: F32.9 Major depressive disorder, single episode, unspecified (principal); L03.317 Cellulitis of buttock; F11.10 Opioid abuse, uncomplicated; F14.10 Cocaine abuse, uncomplicated; Z91.5 Personal history of self-harm; Z20.822 Contact with and (suspected) exposure to COVID-19
CPT/HCPCS: 36415; 80053; 80307; 81025; 86803; 87522; 99283; 80320; 81003; 81015; 84443; 85025; 99222

== ENCOUNTER 2023-06-26 19:10 | Emergency (ER) | payer MEDICAID, SELFPAY ==
[2023-06-26 19:12] VITALS: BP 120/66; PULSE 96; RESP 18; TEMP 37; O2SAT 98
--- NOTE | 2023-06-26 19:32 | ED.GENADUL_ITS ---
Discharge Plan Disposition Patient Disposition: Home Condition: Stable Discharge Details Clinical Impression: Vaginal discharge Primary Care Provider: None,None ED Provider: Merari Turner Home Meds and New Rx's Prescriptions: New metronidazole 0.75 % (37.5mg/5 gram) gel 1 appful vaginal DAILY 5 Days Qty: 70 0RF Rx Instructions: Use as directed, one application daily x 5 days metronidazole 500 mg tablet 500 mg PO BID 7 Days Qty: 14 0RF Rx Instructions: Take one tablet by mouth twice daily x 7 days Discharge Instructions Instructions: Bacterial Vaginosis (ED), Trichomoniasis (ED) Additional Instructions: Positive for trichomoniasis Please take the antibiotic pill once a day for the next 5 days. As prescribed. The rest of the swabs will come back in 2 to 3 days. We will call you if they are positive. Follow up with primary care provider in 3-5 days. Return to ED sooner if any worsening or concerns. Please take Tylenol or Ibuprofen with food every 4-6 hours as needed for pain and swelling. No foreign body or tampon visualized at this time. Referrals: [facility] [Provider Group] - 1 week HPI General Mode of arrival: ambulatory . Date/Time Provider Initiated Documentation: 06/26/23 19:24 . Limitations to Documentation: no limitations . Information obtained by: patient, RN notes reviewed and old records reviewed . HPI Narrative: Patient here with possible tampon in vaginal canal for approximately a month she reports 7 out of 10 pelvic pain, discharge smell. Past medical history of asthma depression and acne. Associated with lower back pain and abdominal pain. Denies any fever chills nausea vomiting or any other associated symptoms or concerns. No vaginal bleeding. Related Data Home Medications Medication Instructions Recorded Confirmed metronidazole 0.75 % (37.5 mg/5 1 appful vaginal DAILY Infection 5 06/26/23 gram) vaginal gel days #70 grams metronidazole 500 mg tablet 500 mg PO BID 7 days #14 tabs 06/26/23 Previous Rx's Medication Instructions Recorded metronidazole 0.75 % (37.5 mg/5 1 appful vaginal DAILY Infection 5 06/26/23 gram) vaginal gel days #70 grams metronidazole 500 mg tablet 500 mg PO BID 7 days #14 tabs 06/26/23 Allergies Allergy/AdvReac Type Severity Reaction Status Date / Time No Known Allergies Allergy Verified 06/26/23 19:16 General Stated Complaint: [employer] DOMINIK: 3 Review of Systems All systems reviewed & are unremarkable except as noted in HPI and below Genitourinary Genitourinary: Reports as per HPI, Reports pelvic pain, Reports vaginal discharge and Reports vaginal odor Exam Narrative Exam Narrative: Constitutional: Alert and oriented x3. Appears stated age. Normal body habitus. Head: Normocephalic, no trauma. Eyes: Pupils PERRL, Red reflex noted, EOM's intact. Eyelids symmetrical without lesions, discharge, or swelling. ENT: Bilateral TM's WNL, External ear normal to inspection, no mastoid TTP, swelling, or erythema, Nasal turbinates WNL, no nasal discharge. Poor dentition, Posterior pharynx WNL, no exudate. Chest: RRR, Normal S1, S2, distal pulses intact. Resp: Lungs clear to auscultation bilaterally, no wheezes, rales, or rhonchi. Abdomen: Soft, non-distended, Normoactive bowel sounds all 4 quads. Mildly tender in the suprapubic area. No masses no guarding. See below. Musculoskeletal: Moves all 4 extremities without difficulty. Skin: No suspicious rashes or lesions. Capillary refill less than 2 sec. External Female Exam: normal external appearance and normal appearance of the urethra Speculum Exam - Vagina: normal appearance of the vagina, abnormal vaginal discharge white, erythematous, no foreign bodies, no lacerations, no lesions and No vaginal bleeding Speculum Exam - Cervix: normal appearance of the cervix and abnormal cervical discharge white Bimanual Exam- Vagina & Uterus: cervical motion tenderness OB/External & Speculum: no foreign bodies and No vaginal bleeding Course Vital Signs Vital signs: Vital Signs Temperature 37.0 C 06/26/23 19:12 Pulse 96 H 06/26/23 19:12 Respiratory Rate 18 06/26/23 19:12 Blood Pressure 120/66 06/26/23 19:12 Pulse Oximetry 98 06/26/23 19:12 Temperature 37.0 C 06/26/23 19:12 Temperature Source Skin 06/26/23 19:12 Pulse 96 H 06/26/23 19:12 Respiratory Rate 18 06/26/23 19:12 Respiratory Effort Normal, Non-Labored 06/26/23 19:16 Blood Pressure 120/66 06/26/23 19:12 Blood Pressure Position Sitting 06/26/23 19:12 Pulse Oximetry 98 06/26/23 19:12 Oxygen Delivery Method Room Air 06/26/23 19:12 Oxygen Flow Rate 0 06/26/23 19:12 Pain Level 7 06/26/23 19:20 Medical Decision Making Patient here with possible tampon in vaginal canal for approximately a month she reports 7 out of 10 pelvic pain, discharge smell. Past medical history of asthma depression and acne. Associated with lower back pain and abdominal pain. Denies any fever chills nausea vomiting or any other associated symptoms or concerns. No vaginal bleeding. Pelvic exam performed with Michael DE LEÓN as witness no foreign body visualized or in the vaginal canal, please have copious amounts of white vaginal discharge. Differential diagnosis includes to gonorrhea chlamydia, BV, trichomonas or PID. Urinalysis shows no leukocytes no nitrites no evidence of UTI is negative. Vaginal pathogen screen positive for trichomonas and Gardnerella will treat with Metro gel and Flagyl p.o. GC chlamydia pending at this time. Discussed results with patient and family who verbalized understanding. All her questions were answered to the best my ability. I did discuss pelvic rest and follow-up care. This text was generated using [employer] dictation system, please disregard any oddities of phrase or misspellings. Lab Data Lab results reviewed: Yes I reviewed the patient's lab results. Labs: 06/26/23 19:40 Vaginal Vaginitis Screen - Final Laboratory Tests Range/Units 06/26/23 19:40 Urine Color (Yellow) Yellow Urine Clarity (Clear) Sl Cloudy Urine pH (5-8) 8.5 H Ur Specific [place] (1.005-1.025) 1.020 Urine Protein (Neg-Trace) mg/dL Negative Urine Ketones (Negative) mg/dL Negative Urine Blood (Negative) Negative Urine Nitrite (Negative) Negative Urine Bilirubin (Negative) Negative Urine Urobilinogen (Up to 0.2) mg/dL 1.0 H Ur Leukocyte Esterase (Negative) Negative Urine Glucose (Negative) mg/dL Negative Quality:SDOH Health Related Social Needs: No Data to Display PFSH All Active Problems (Updated 06/26/23 @ 20:13 by Merari Turner NP) Vaginal discharge (Acute) Amenorrhea (Acute) Drug addiction (Acute) Depression (Chronic) Cellulitis of buttock (Acute) Polysubstance abuse (Acute) Ankle sprain (Acute) Syncope (Acute 03/10/12) cardiology eval 05/29 - vasovagal Short stature (Acute 04/16/11) Wellness examination (Acute 05/15/11) Postnasal drip (Acute 07/06/14) 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 Angelica Mays for major depression and social phobia- on meds. Contraception (Acute 09/26/13) Underweight in childhood with body mass index (BMI) less than fifth percentile (Acute 02/22/15) Anxiety (Acute 01/23/16) Medical History (Updated 06/26/23 @ 20:13 by Merari Turner NP) Asthma Depression Acne 504 PLAN/IEP Surgical History Tooth extraction Family History Mother Mental disorder anxiety/depression Father Difficulty controlling anger Brother Substance abuse Other Mental disorder MGM- anxiety/depression Asthma MGF, MU. MGM Social History Smoking/Tobacco Use Status: Current every day Tobacco Type: cigarettes and e- cigarettes Tobacco: How many years used: 3 Smoking risk assessment performed?: Yes Alcohol Intake: never Drug use: Daily Substance use type: crack/cocaine, opiates and IV drugs Do you feel safe at home: Yes Do you feel safe in your relationship?: Yes
[2023-06-26 19:55] LABS: Bilirubin Negative (Negative); Blood Negative (Negative); Clarity Sl Cloudy (Clear); Glucose Negative (Negative); Ketones Negative (Negative); Leukocyte Esterase Negative (Negative); Nitrite Negative (Negative); pH 8.5 (5-8)
[2023-06-26] MEDS: metroNIDAZOLE 500 MG TAB PO (20:31)
[2023-06-29 13:51] LABS: Chlamydia Result Negative (Negative); GC Result Negative (Negative)
== END 2023-06-26 21:04 | disposition home or self-care (01) ==
LOC: ER 21:15
PROVIDERS: Emergency Provider Registered Nurse Emergency
DX: A59.01 Trichomonal vulvovaginitis (principal); F17.210 Nicotine dependence, cigarettes, uncomplicated; F17.290 Nicotine dependence, other tobacco product, uncomplicated
CPT/HCPCS: 81025; 87491; 87591; 99283; 81003; 87480; 87510; 87660